=== PATIENT | male | born 1950 ===

== ENCOUNTER 2019-08-29 09:02 | Emergency (ER) | payer MEDICARE, OTHER ==
[~2019-08-29] VITALS: Ht 182 cm; Wt 68.0 kg
--- NOTE | 2019-08-29 09:31 | ED GI ---
General Stated Complaint: FLUID BUILD UP IN ABD Source of Information: Patient, Family (daughter, Alivia) Exam Limitations: No Limitations History of Present Illness Date Seen by Provider: Aug 29, 2019 Time Seen by Provider: 09:15 Initial Comments The patient resents to ER by private conveyance with chief complaint that he is traveling from his home in [place], [place] and has some increased abdominal discomfort and swelling. He has a history of abdominal ascites. 2004 he had a choledocholithiasis causing pancreatitis and portal vein thrombosis which has resulted in end-stage liver failure. He is not a transplant candidate however he has looked several different hospitals. For the past 15 years he just been having ascitic fluid drained as necessary. His last paracentesis was 2 weeks ago. He's had no shortness of breath chest pain fevers chills cough. He had an abdominal surgery to have his gallbladder and stone removed laparoscopically in 2004 and he has had a ventral hernia repair but no other abdominal surgeries. He's having abdominal discomfort but no severe pain. He does not take any medications routinely. He still follows with GI in [place], [place]. Allergies and Home Medications Patient Home Medication List Home Medication List Reviewed: Yes Review of Systems Review of Systems Constitutional: No chills, No fever EENTM: No Blurred Vision, No Double Vision Respiratory: Denies Cough, Denies Shortness of Air Cardiovascular: Denies Chest Pain, Denies Lightheadedness Gastrointestinal: See HPI, Abdomen Distended; Denies Abdominal Pain, Denies Constipated, Denies Diarrhea, Denies Nausea Genitourinary: Denies Burning, Denies Discharge Musculoskeletal: No back pain, No gout All Other Systems Reviewed Negative Unless Noted: Yes Past Btbygbx-Dkttqj-Bhqtav Hx Patient Social History Alcohol Use: Denies Use Recreational Drug Use: No Smoking Status: Never a Smoker Physical Exam Vital Signs Capillary Refill : Height/Weight/BMI Height: '" Weight: lbs. oz. kg; BMI Method: General Appearance: WD/WN, no apparent distress HEENT: PERRL/EOMI, pharynx normal Respiratory: lungs clear, normal breath sounds, no respiratory distress, no accessory muscle use Cardiovascular: normal peripheral pulses, regular rate, rhythm Peripheral Pulses: 2+ Dorsalis Pedis (R), 2+ Left Dors-Pedis (L) Gastrointestinal: normal bowel sounds, non tender, no organomegaly, distended Neurologic/Psychiatric: alert, normal mood/affect, oriented x 3 Skin: normal color, warm/dry Progress/Results/Core Measures Results/Orders My Orders Orders - EDMOND VANG Us Abdomen Complete [id number] (08/29/19 09:22) Ed Iv/Invasive Line Start (08/29/19 09:22) Cbc With Automated Diff (08/29/19 09:22) Comprehensive Metabolic Panel (08/29/19 09:22) Progress Progress Note : Time: 09:35 Progress Note Due to installer technician unavailability we are unable to get an ultrasound this morning. The patient's not a acute distress and says he'll be around tomorrow. We discussed the case with Dr. Valverde and he would like to schedule the patient in the morning tomorrow for outpatient ultrasound and paracentesis at the surgery center. The patient's in agreement with this plan. The patient has refused to do any blood work which is acceptable at this point. Departure Impression Primary Impression: Ascites Qualified Codes: R18.8 - Other ascites Disposition: 01 HOME, SELF-CARE Condition: Stable Departure-Patient Inst. Decision time for Depature: 09:38 Referrals: NO,LOCAL PHYSICIAN (PCP) Primary Care Physician ZURI VALVERDE MD Patient Instructions: Fluid in the Belly (Ascites) Add. Discharge Instructions: Tomorrow morning plan to arrive at the outpatient surgery center at least half a n hour prior to your 9:00 appointment for ultrasound and subsequent paracentesis. Dr. Valverde, general surgery will be performing the procedure. EDMOND VANG Aug 29, 2019 09:31
--- NOTE | 2019-08-29 09:35 | NUR ---
Pt refusing to have blood drawn or have an IV placed.
[2019-08-29 09:44] VITALS: BP 97/66
--- OUTSIDE RECORDS SUMMARY | 2019-08-31 17:20 | XMS REPORT | Continuity of Care Document ---
Author Organization Unknown Address Unknown Phone Unavailable Allergies Active Description Code Type Severity Reaction Onset Reported/Identified Relationship to Patient Clinical Status Yes NSAIDS (Non-Steroidal Anti-Inflamma [id number] Drug Allergy Unknown N/A 08/29/2019 Medications There is no data. Problems There is no data. Procedures There is no data. Results There is no data. Encounters ACCT No. Visit Date/Time Discharge Status Pt. Type Provider Facility Loc./Unit Complaint [id number] 08/30/2019 09:11:00 020 13:44:00 DIS Outpatient EDMOND VANG MD [facility] RAD ASCITES FOR PARACENTESI S [id number] 08/29/2019 09:03:00 09:44:00 DIS Emergency EDMOND VANG MD [facility] ER FLUID BUILD UP IN ABD
== END 2019-08-29 09:44 | disposition home or self-care (01) ==
LOC: ER 09:03
DX: R18.8 Other ascites (principal)
CPT/HCPCS: 99282

== ENCOUNTER 2019-08-30 09:11 | Outpatient (CLI) | payer MEDICARE ==
[~2019-08-30] VITALS: Ht 175.3 cm; Wt 68.0 kg
[2019-08-30 10:15] VITALS: BP 104/72
--- NOTE | 2019-08-30 13:45 | NUR ---
DR. VALVERDE HERE AT 1115 FOR PARACENTESIS: PROCEDURE TIME STARTED AT 1128, LIDOCAINE AT 1128, INCISION MADE AT 1129. STOP TIME IS 1324. AMOUNT DRAINED IS 6050 ML'S. TAKEN TO LAB PT STATES HE FEELS BETTER AT THIS TIME.
--- NOTE | 2019-08-30 16:05 | CONSULTATION REPORT ---
DATE OF SERVICE: 08/30/2019 INDICATIONS: The patient is a 69-year-old male who is visiting from [place], [place]. He has a history of portal vein thrombosis secondary to what sounds to be a gallstone pancreatitis in 2004. He then underwent a laparoscopic cholecystectomy as well as the ERCP; however, the pancreatitis did cause a significant amount of inflammation and thus the thrombosis. He has been evaluated by hepatology and adequate workup had been done. He was treated medically and also evaluated for liver transplantation; however, due to medical comorbidities, it was decided to proceed with more conservative approach. He reports that he has had issues with ascites more on an infrequent basis. However, in the past 15 months, this has become much more frequent. He does follow a strict low sodium low water diet. He has had reaccumulation of ascites with positive fluid shift wave. Ultrasound confirmed the ascites and location of the largest area of accumulation in the left lower abdominal quadrant. PAST MEDICAL HISTORY: Portal vein thrombosis, portal hypertension, esophageal varices, history of gallstone pancreatitis. PAST SURGERIES: Laparoscopic cholecystectomy, incisional hernia repair with mesh, bilateral inguinal hernia repair, umbilical hernia repair. ALLERGIES: No known drug allergies. MEDICATIONS: Nexium daily. SOCIAL HISTORY: Negative smoke, negative alcohol. FAMILY HISTORY: Noncontributory. VITAL SIGNS: Temperature 36.6, blood pressure 104/72, pulse 70, respirations 16, pulse ox 98% on room air. REVIEW OF SYSTEMS: Well-nourished male in no acute distress. He is not experiencing any shortness of breath or difficulty breathing. No chest pain, palpitations, diaphoresis. No nausea, vomiting. No diarrhea, constipation. No fever, chills, no recent inadvertent weight loss. All other review of systems negative. PHYSICAL EXAMINATION: CHEST: Clear. Good breath sounds bilaterally. HEART: Regular, no murmurs. EXTREMITIES: No lower extremity edema, negative Homans sign. HEENT: No scleral icterus or cervical lymphadenopathy. ABDOMEN: Soft, distended with a positive fluid shift wave. No abdominal pain. SKIN: Warm, dry. ASSESSMENT AND PLAN: A 69-year-old male with symptomatic ascites secondary to portal vein thrombosis and sinistral hypertension and resultant esophageal varices, caput medusae and ascites. He has reaccumulated ascites and has become symptomatic and we will proceed with therapeutic paracentesis. Job ID: [id number] DocumentID: [id number] Dictated Date: 08/30/2019 11:48:08 Magazine Worker Date: 08/30/2019 16:04:35 Dictated By: ZURI VALVERDE MD
--- NOTE | 2019-08-30 16:22 | OPERATIVE REPORT ---
DATE OF SERVICE: 08/30/2019 PREOPERATIVE DIAGNOSIS: Symptomatic ascites secondary to portal vein thrombosis. POSTOPERATIVE DIAGNOSIS: Symptomatic ascites secondary to portal vein thrombosis. PROCEDURE: Paracentesis. SURGEON: Zuri Valverde MD. ANESTHESIA: Local. ESTIMATED BLOOD LOSS: Minimal. FINDINGS: Straw yellow transudative fluid. DISPOSITION: The patient tolerated the procedure well. INDICATIONS: The patient is a 69-year-old male with a history of portal vein thrombosis secondary to gallstone pancreatitis in 2004. Since that time, he has been managed medically; however, in the past year and a half, he has had increasing episodes of symptomatic ascites. He has also undergone multiple EGDs as well as esophageal variceal banding. He is visiting family in this region; however, resides in [place], [place]. He has had reaccumulation of fluid with a positive fluid shift wave consistent with recurrent ascites. DESCRIPTION OF PROCEDURE: The patient underwent an ultrasound and marked in the left lower abdominal quadrant before the procedure. The abdomen was then prepped and draped in standard surgical fashion. A 1% lidocaine was then used to anesthetize the skin, subcutaneous tissue, muscle layers as well as the peritoneal lining. A vertical skin incision was made using 11 blade and the trocar and catheter were then placed withdrawing of straw yellow transudative fluid. The catheter was then advanced over the trocar without any resistance. Catheter was then connected to tubing and gravity drainage bag. The catheter was then covered with sterile gauze followed by Op-Site. The patient tolerated the procedure well. We will draw off as much fluid as possible and once this has decreased and he is asymptomatic, remove the catheter and apply Dermabond. We will also recommend continuation of medical management with a low sodium low water intake. It should be less than 1.5 grams of sodium daily as well as less than 1.5 liters of total of liquids daily. Job ID: [id number] DocumentID: [id number] Dictated Date: 08/30/2019 11:51:26 Accounting Intern Date: 08/30/2019 16:22:18 Dictated By: ZURI VALVERDE MD
== END 2019-08-30 13:44 | disposition home or self-care (01) ==
LOC: RAD 09:11
PROVIDERS: ATTEND Emergency Medicine
DX: R18.8 Other ascites (principal)
CPT/HCPCS: 49082; 49083

== ENCOUNTER 2019-09-19 09:21 | Emergency (ER) | payer MEDICARE ==
[~2019-09-19] VITALS: Ht 182 cm; Wt 58.0 kg
[2019-09-19] MEDS ORDERED: LACT1CAP74 PO (09:48)
[2019-09-19] MEDS ORDERED: ESOM20CA PO (09:48)
[2019-09-19] MEDS ORDERED: SIME125C PO (09:48)
--- OUTSIDE RECORDS SUMMARY | 2019-09-19 09:52 | XMS REPORT | Continuity of Care Document ---
Author Organization Unknown Address Unknown Phone Unavailable Allergies Active Description Code Type Severity Reaction Onset Reported/Identified Relationship to Patient Clinical Status Yes NSAIDS (Non-Steroidal Anti-Inflamma [id number] Drug Allergy Unknown N/A 08/29/2019 Medications There is no data. Problems Date Dx Coded Attending Type Code Diagnosis Diagnosed By 09/06/2019 CIERA SANCHEZ, EDMOND Edwards Ot R18. 8 OTHER ASCITES Procedures There is no data. Results There is no data. Encounters ACCT No. Visit Date/Time Discharge Status Pt. Type Provider Facility Loc./Unit Complaint [id number] 08/30/2019 09:11:00 020 13:44:00 DIS Outpatient EDMOND VANG MD [facility] RAD ASCITES FOR PARACENTESI S [id number] 08/29/2019 09:03:00 020 09:44:00 DIS Outpatient EDMOND VANG MD [facility] ER FLUID BUILD UP IN ABD
--- NOTE | 2019-09-19 12:06 | ED GI ---
General Chief Complaint: Abdominal/GI Problems Stated Complaint: FLUID ON STOMACH Nursing Triage Note: PT PRESENTS TO ED WITH COMPLAINTS OF ABDOMINAL SWELLING/FLUID THAT HE NEDS DRAINED,. Sepsis Screen: No Definite Risk History of Present Illness Date Seen by Provider: Sep 19, 2019 Time Seen by Provider: 11:30 Initial Comments 69-year-old male presents for reaccumulation of abdominal ascites. He has history of portal vein thrombosis with resultant end-stage liver failure had his last paracentesis done at this facility by Dr. VALVERDE on 08/30/19. He has been following her sodium and fluid restrictions. He denies any significant abdominal pain other than the fluid. Timing/Duration: 1-2 Days Severity/Quality: Moderate Location: Generalized Abdomen Associated Symptoms: Denies Symptoms Allergies and Home Medications Allergies Coded Allergies: NSAIDS (Non-Steroidal Anti-Inflamma (Verified Adverse Reaction, Unknown, 08/29/19) bleeding Patient Home Medication List Home Medication List Reviewed: Yes Review of Systems Review of Systems Constitutional: no symptoms reported Gastrointestinal: See HPI, Abdomen Distended; Denies Diarrhea, Denies Nausea, Denies Poor Appetite, Denies Poor Fluid Intake All Other Systems Reviewed Negative Unless Noted: Yes Past Ajzycpx-Bakiwo-Uycoos Hx Past Med/Social Hx: Reviewed Nursing Past Med/Soc Hx Patient Social History Alcohol Use: Denies Use Recreational Drug Use: No Smoking Status: Never a Smoker 2nd Hand Smoke Exposure: No Recent Foreign Travel: No Contact w/Someone Who Travel: No Recent Infectious Disease Expo: No Recent Hopitalizations: No Physical Abuse: No Sexual Abuse: No Mistreated: No Fear: No Past Medical History Surgeries: Yes (hernia) Abdominal, Gallbladder Respiratory: No Cardiac: No Neurological: No Genitourinary: Yes Kidney Stones Gastrointestinal: Yes ("needs liver transplant" DVT of portal vein, ) Abdominal Hernia, Liver Disease/Jaundice Endocrine: No HEENT: No Cancer: No Integumentary: No Blood Disorders: No Physical Exam Vital Signs Vital Signs - First Documented 09/19/19 09:39 Temp 36.6 Pulse 73 Resp 16 B/P (MAP) 95/66 (76) Pulse Ox 100 Capillary Refill : Less Than 3 Seconds Height/Weight/BMI Height: '" Weight: lbs. oz. kg; 17.00 BMI Method: General Appearance: WD/WN, no apparent distress HEENT: PERRL/EOMI, normal ENT inspection; No scleral icterus (R), No scleral icterus (L) Neck: non-tender, full range of motion, supple, normal inspection Respiratory: chest non-tender, lungs clear, normal breath sounds Cardiovascular: normal peripheral pulses, regular rate, rhythm Gastrointestinal: normal bowel sounds, distended; No rebound, No tenderness, No mass Neurologic/Psychiatric: no motor/sensory deficits, alert, normal mood/affect, oriented x 3 Skin: normal color, warm/dry; No jaundice Progress/Results/Core Measures Results/Orders Vital Signs/I&O 09/19/19 09/19/19 09:39 12:25 Temp 36.6 Pulse 73 70 Resp 16 20 B/P (MAP) 95/66 (76) 99/72 Pulse Ox 100 98 Blood Pressure Mean: 76 Diagnostic Imaging Diagonstic Imaging: Ultrasound Plain Films/CT/US/NM/MRI: abdomen Comments NAME: STEPH RODRIGUEZ [facility] REC#: [id number] PT STATUS: REG ER : 1950 PHYSICIAN: RUFINA KABA MD ADMIT DATE: 09/19/19/ER Draft Date of Exam:09/19/19 US PARACENTESIS INITIAL [id number] INDICATION: Ascites. FINDINGS: Right and left upper lower quadrants were evaluated for ascites. There is a large amount of ascites in the right lower quadrant. Moderate ascites left lower quadrant is seen. Left upper quadrant is unremarkable. There is dhhq-xb-rccjedzl ascites in the right upper quadrant. IMPRESSION: Moderate ascites, as described. Marking was provided at the right lower quadrant for paracentesis. Dictated on workstation # [id number] Dict: 09/19/19 1204 Trans: 09/19/19 1206 CVB [id number] Interpreted by: NEERU SMITH MD Electronically signed by: Departure Impression Primary Impression: Ascites Qualified Codes: R18.8 - Other ascites Disposition: HOME, SELF-CARE Condition: Improved Departure-Patient Inst. Decision time for Depature: 12:00 Referrals: NO,LOCAL PHYSICIAN (PCP) Primary Care Physician ZURI VALVERDE MD Patient Instructions: Fluid in the Belly (Ascites) (DC) Add. Discharge Instructions: Proceed to Outpatient surgery, you will have paracentesis by Dr. Kido later today. Follow his precautions on sodium and fluid restrictions. Call his office, if fluid re-accumulates. Return to the emergency department for new, urgent health care problems. All discharge instructions reviewed with patient and/or family. Voiced understanding. Copy Copies To 1: ZURI VALVERDE MD, AMY ARNP Sep 19, 2019 12:05
--- NOTE | 2019-09-19 12:07 | Diagnostic Imaging Report ---
INDICATION: Ascites. FINDINGS: Right and left upper lower quadrants were evaluated for ascites. There is a large amount of ascites in the right lower quadrant. Moderate ascites left lower quadrant is seen. Left upper quadrant is unremarkable. There is iwwx-is-quvoxmps ascites in the right upper quadrant. IMPRESSION: Moderate ascites, as described. Marking was provided at the right lower quadrant for paracentesis. Dictated by: Dictated on workstation # [id number]
[2019-09-19 12:25] VITALS: BP 99/72
== END 2019-09-19 12:25 | disposition home or self-care (01) ==
LOC: EDUNIT# 09:21 → ER 09:27
DX: R18.8 Other ascites (principal); K72.90 Hepatic failure, unspecified without coma; Z86.718 Personal history of other venous thrombosis and embolism
CPT/HCPCS: A7048; 49083

== ENCOUNTER 2019-09-19 12:16 | Outpatient (CLI) | payer MEDICARE ==
[~2019-09-19 12:16] MED LIST: ESOM20CA PO; LACT1CAP74 PO; SIME125C PO
--- OUTSIDE RECORDS SUMMARY | 2019-09-19 13:06 | XMS REPORT | Continuity of Care Document ---
Author Organization Unknown Address Unknown Phone Unavailable Allergies Active Description Code Type Severity Reaction Onset Reported/Identified Relationship to Patient Clinical Status Yes NSAIDS (Non-Steroidal Anti-Inflamma [id number] Drug Allergy Unknown N/A 08/29/2019 Medications There is no data. Problems Date Dx Coded Attending Type Code Diagnosis Diagnosed By 09/06/2019 CIERA SANCHEZ, EDMOND Edwards Ot R18. 8 OTHER ASCITES Procedures There is no data. Results There is no data. Encounters ACCT No. Visit Date/Time Discharge Status Pt. Type Provider Facility Loc./Unit Complaint [id number] 08/30/2019 09:11:00 020 13:44:00 DIS Outpatient EDMOND VANG MD [facility] RAD ASCITES FOR PARACENTESI S [id number] 08/29/2019 09:03:00 020 09:44:00 DIS Outpatient EDMOND VANG MD [facility] ER FLUID BUILD UP IN ABD
[2019-09-19 13:43] VITALS: BP 116/79
--- NOTE | 2019-09-19 15:30 | NUR ---
ASSUMED CARE OF PT FROM Virgilio KING RN. CLOUDY, YELLOW FLUID DRAINING FROM RIGHT LOWER QUAD PARACENTESIS SITE TO DEPENDANT DRAINAGE BRUNNER BAG SECURED TO LOWER BED RAIL. MINIMAL AMOUNT OF SEROSANGUINOUS DRAINAGE ON GAUZE AT PARACENTESIS CATHETER INSERTION SITE. OPSITE IN PLACE OVER GAUZE. PT ALERT, STATES SITE IS TENDER.
--- NOTE | 2019-09-19 15:33 | HISTORY AND PHYSICAL ---
DATE OF SERVICE: HISTORY OF PRESENT ILLNESS: The patient is a 69-year-old male who was initially seen on 08/30/2019. He was visiting from [place], [place], however, has family from this region and was visiting. He has a history of portal vein thrombosis secondary to gallstone pancreatitis in 2004. He underwent a laparoscopic cholecystectomy as well as the ERCP; however, the pancreatitis did cause a significant amount of inflammation and thus the thrombosis. He has been evaluated by hepatology and has had adequate workup done in the past. He has been medically treated and also evaluated for liver transplantation; however, due to medical comorbidities, it was decided to proceed with a more conservative approach. He does have issues with recurrent ascites. In the last 15 months, this has become more frequent. He does follow a strict low sodium, low water diet. He did return to the Emergency Department with recurrent abdominal distention with positive fluid shift wave consistent with recurrent ascites. PAST MEDICAL HISTORY: Portal vein thrombosis, portal hypertension, esophageal varices, history of gallstone pancreatitis. PAST SURGICAL HISTORY: Laparoscopic cholecystectomy, incisional hernia repair with mesh, bilateral inguinal hernia repair, umbilical hernia repair. ALLERGIES: No known drug allergies. MEDICATIONS: Nexium daily. SOCIAL HISTORY: Negative smoke, negative alcohol. FAMILY HISTORY: Noncontributory. VITAL SIGNS: Temperature 36.1, blood pressure 116/71, pulse 71, respirations 18, pulse ox 99% on room air. REVIEW OF SYSTEMS: Well-nourished male, in no acute distress. He is not experiencing any shortness of breath or difficulty breathing. No chest pain, palpitations, diaphoresis. No nausea, vomiting, diarrhea, or constipation. No fever, chills, no recent inadvertent weight loss. All other review of systems negative. PHYSICAL EXAMINATION: CHEST: Clear. Good breath sounds bilaterally. HEART: Regular, no murmurs. EXTREMITIES: No lower extremity edema, negative Homans sign. HEENT: No scleral icterus or cervical lymphadenopathy. ABDOMEN: Distended, soft, positive fluid shift wave. No peritoneal signs. SKIN: Warm and dry. ASSESSMENT AND PLAN: A 69-year-old male with recurrent symptomatic ascites secondary to portal hypertension from previous portal vein thrombosis from gallstone pancreatitis. Once again we have developed recurrent ascites and symptomatic and we will proceed with a therapeutic paracentesis. Job ID: [id number] DocumentID: [id number] Dictated Date: 09/19/2019 15:11:28 Mop Man Date: 09/19/2019 15:33:09 Dictated By: ZURI VALVERDE MD
--- NOTE | 2019-09-19 17:15 | NUR ---
4,250 CC PARACENTESIS FLUID OBTAINED. FLOW TO BAG HAS STOPPED. PARACENTESIS CATHETER REMOVED WITH STERILE TECHNIQUE. SKIN AFFIX APPLIED TO SITE. TEMP, 36.4, PULSE 65, RESPIRATIONS 18, B/P 110/69. ALERT, DENIES COMPLAINTS OTHER THAN SITE TENDERNESS.
--- NOTE | 2019-09-19 17:25 | NUR ---
DISMISSED PER WC THROUGH FRONT EXIT TO PRIVATE VEHICLE WITH STAFF X1.
--- NOTE | 2019-09-19 19:37 | OPERATIVE REPORT ---
DATE OF SERVICE: 09/19/2019 PREOPROCEDURE DIAGNOSIS: Recurrent symptomatic ascites, secondary to portal vein thrombosis from gallstone pancreatitis. POSTPROCEDURE DIAGNOSIS: Recurrent symptomatic ascites, secondary to portal vein thrombosis from gallstone pancreatitis. PROCEDURE: Paracentesis. SURGEON: Zuri Valverde MD ANESTHESIA: Local. ESTIMATED BLOOD LOSS: Minimal. FINDINGS: Straw yellow transudative fluid. DISPOSITION: The patient tolerated the procedure well. INDICATIONS: The patient is a 69-year-old male, known to us. He initially grew up. However, he has lived in different locations and currently resides in [place], [place] and was visiting family; however, had recurrent symptomatic ascites. He has a history of gallstone pancreatitis causing portal vein thrombosis and recurrent ascites. He has developed recurrent abdominal distention with positive fluid shift wave consistent with recurrent ascites. DESCRIPTION OF PROCEDURE: The abdomen was prepped and draped in standard surgical fashion. Before this, an ultrasound was performed and the abdomen was marked in the right lower abdominal quadrant. A 1% lidocaine was used to anesthetize the skin, subcutaneous tissue, muscle layers as well as the peritoneal lining. A vertical skin incision was made using a 15 blade. The catheter and trocar were then introduced, withdrawing of straw yellow transudative fluid. The catheter was advanced over the trocar without any resistance. The catheter was then connected to tubing and gravity drainage bag. The catheter was then covered with gauze followed by sterile gauze followed by Op-Site. The patient tolerated the procedure well. We will drain as much fluid as possible and once asymptomatic with significant decompression of the abdomen, the catheter was removed and we will discharge him home. We will have him follow up on a p.r.n. basis. Job ID: [id number] DocumentID: [id number] Dictated Date: 09/19/2019 15:15:15 Creamery Worker Date: 09/19/2019 19:37:20 Dictated By: ZURI VALVERDE MD
== END 2019-09-19 17:25 | disposition home or self-care (01) ==
LOC: SDC 12:16 → ER 12:16 → EDSTATUS 12:24 → ER 17:25
PROVIDERS: ATTEND Surgery
DX: R18.8 Other ascites (principal); K76.6 Portal hypertension; Z90.49 Acquired absence of other specified parts of digestive tract; Z98.890 Other specified postprocedural states
CPT/HCPCS: 49082

== ENCOUNTER 2019-10-06 09:43 | Outpatient (CLI) | payer MEDICARE ==
[~2019-10-06] VITALS: Ht 182.9 cm; Wt 58.0 kg
--- NOTE | 2019-10-06 11:14 | Diagnostic Imaging Report ---
INDICATION: Ascites. Sonographic interrogation of the right and left upper and lower quadrants was performed. Moderate free fluid is identified in the lower quadrants bilaterally. The largest pocket in the right lower quadrant was marked for Dr. Birmignham for the purpose of paracentesis. IMPRESSION: Ultrasound marking for paracentesis, as described. Dictated by: Dictated on workstation # [id number]
[2019-10-06 12:05] VITALS: BP 108/74
--- NOTE | 2019-10-06 12:18 | OPERATIVE REPORT ---
DATE OF SERVICE: 10/06/2019 PREOPERATIVE DIAGNOSIS: Recurrent symptomatic ascites. POSTPROCEDURE DIAGNOSIS: Recurrent symptomatic ascites. PROCEDURE: Paracentesis. SURGEON: Zuri Valverde MD. ANESTHESIA: Local. ESTIMATED BLOOD LOSS: Minimal. FINDINGS: Approximately 3500 mL of straw yellow transudative fluid. DISPOSITION: The patient tolerated the procedure well. INDICATION FOR PROCEDURE: The patient is a 69-year-old male known to us. He has a history of recurrent symptomatic ascites secondary to portal vein thrombosis from an episode of gallstone pancreatitis. He was living in [place], [place]; however, has moved to this area to be closer to family. He is otherwise doing well; however, has developed recurrent symptomatic ascites. DESCRIPTION OF PROCEDURE: Abdomen was prepped and draped in a standard surgical fashion. Before this, the abdomen was marked in the right lower abdominal quadrant by ultrasound. A 1% lidocaine was then used to anesthetize the skin, subcutaneous tissue, muscle layers as well as the peritoneal lining. A vertical skin incision was then made using 11 blade and the catheter and trocar were then introduced withdrawing of straw yellow transudative fluid. The catheter was then advanced over the trocar without any resistance. The catheter was then continued to vacuum container where approximately 3.5 liters of straw yellow transudative fluid was evacuated. The catheter was then removed, dried and covered with Dermabond. The patient tolerated the procedure well. We will have him follow up when he does have a reoccurrence of symptomatic ascites. Job ID: [id number] DocumentID: [id number] Dictated Date: 10/06/2019 11:31:10 Executive Director Of Nursing Date: 10/06/2019 12:17:48 Dictated By: ZURI VALVERDE MD
== END 2019-10-06 12:05 | disposition home or self-care (01) ==
LOC: RAD 09:43
PROVIDERS: ATTEND Surgery
DX: R18.8 Other ascites (principal); I81 Portal vein thrombosis
CPT/HCPCS: 49082; 76942

== ENCOUNTER 2019-10-11 09:39 | Inpatient (IN) | payer MEDICARE ==
[~2019-10-11] VITALS: Ht 182.9 cm; Wt 62.4 kg
--- NOTE | 2019-10-11 10:09 | ED GI ---
General Chief Complaint: Abdominal/GI Problems Stated Complaint: BLOOD IN STOOL;DIZZINESS Source of Information: Patient Exam Limitations: No Limitations History of Present Illness Date Seen by Provider: Oct 11, 2019 Time Seen by Provider: 09:57 Initial Comments Here with report of feeling weak and dizzy and having red blood in stool. Does have history of portal vein thrombosis and subsequent liver dysfunction. He is from [place], [place] and has been here for several weeks. He is staying at a hotel to avoid COVID-19. He has had several paracenteses with Dr. Birmingham. Denies fever or chills. Denies any significant discomfort or breathing problems currently. Timing/Duration: 2-3 Days, Getting Worse Severity/Quality: Mild (dizziness and small amount of blood in stool) Location: Other (generalized abdominal distention) Activities at Onset: None Modifying Factors: Worsens With Movement; Improves With Resting Associated Symptoms: No Back Pain, No Chest Pain, No Fever/Chills; Fatigue; No Shortness of Air; Weakness Allergies and Home Medications Allergies Coded Allergies: NSAIDS (Non-Steroidal Anti-Inflamma (Verified Adverse Reaction, Unknown, 08/29/19) bleeding Patient Home Medication List Home Medication List Reviewed: Yes Review of Systems Review of Systems Constitutional: see HPI EENTM: No Symptoms Reported Respiratory: No Symptoms Reported Cardiovascular: Denies Chest Pain; Lightheadedness Gastrointestinal: Nausea, Rectal Bleeding; Denies Vomiting Genitourinary: No Symptoms Reported Musculoskeletal: no symptoms reported Skin: no symptoms reported Psychiatric/Neurological: See HPI All Other Systems Reviewed Negative Unless Noted: Yes Past Vcyhsql-Goatvm-Twdfvm Hx Past Med/Social Hx: Reviewed Nursing Past Med/Soc Hx Patient Social History Alcohol Use: Denies Use Recreational Drug Use: No Smoking Status: Never a Smoker 2nd Hand Smoke Exposure: No Recent Foreign Travel: No Contact w/Someone Who Travel: No Recent Hopitalizations: No Past Medical History Surgeries: Yes (hernia) Abdominal, Gallbladder Respiratory: No Cardiac: No Neurological: No Genitourinary: Yes Kidney Stones Gastrointestinal: Yes ("needs liver transplant" DVT of portal vein, ) Abdominal Hernia, Liver Disease/Jaundice Endocrine: No HEENT: No Cancer: No Integumentary: No Blood Disorders: No Family Medical History Reviewed Nursing Family Hx Physical Exam Vital Signs Vital Signs - First Documented 10/11/19 09:40 Temp 36.4 Pulse 91 Resp 18 B/P (MAP) 133/79 (97) Pulse Ox 100 Capillary Refill : Height/Weight/BMI Height: '" Weight: lbs. oz. kg; 17.00 BMI Method: General Appearance: WD/WN, no apparent distress HEENT: PERRL/EOMI, TMs normal, pharynx normal Neck: full range of motion, supple Respiratory: lungs clear, normal breath sounds Cardiovascular: regular rate, rhythm, no murmur Peripheral Pulses: 2+ Dorsalis Pedis (R), 2+ Left Dors-Pedis (L), 2+ Radial Pulses (R), 2+ Radial Pulses (L) Gastrointestinal: soft, distended; No tenderness Extremities: non-tender, normal inspection Back: normal inspection, no CVA tenderness, no vertebral tenderness Neurologic/Psychiatric: alert, oriented x 3 Skin: normal color, warm/dry Progress/Results/Core Measures Results/Orders Lab Results Laboratory Tests Test 10/11/19 09:55 10/11/19 10:57 Range/Units White Blood Count 7.0 4.3-11.0 10^3/uL Red Blood Count 3.52 L 4.35-5.85 10^6/uL Hemoglobin 8.3 L 13.3-17.7 G/DL Hematocrit 27 L 40-54 % Mean Corpuscular Volume 76 L 80-99 FL Mean Corpuscular Hemoglobin 24 L 25-34 PG Mean Corpuscular Hemoglobin Concent 31 L 32-36 G/DL Red Cell Distribution Width 21.0 H 10.0-14.5 % Platelet Count 206 130-400 10^3/uL Mean Platelet Volume 9.7 7.4-10.4 FL Neutrophils (%) (Auto) 90 H 42-75 % Lymphocytes (%) (Auto) 5 L 12-44 % Monocytes (%) (Auto) 5 0-12 % Eosinophils (%) (Auto) 0 0-10 % Basophils (%) (Auto) 0 0-10 % Neutrophils # (Auto) 6.3 1.8-7.8 X 10^3 Lymphocytes # (Auto) 0.3 L 1.0-4.0 X 10^3 Monocytes # (Auto) 0.4 0.0-1.0 X 10^3 Eosinophils # (Auto) 0.0 0.0-0.3 10^3/uL Basophils # (Auto) 0.0 0.0-0.1 10^3/uL Neutrophils % (Manual) 89 % Lymphocytes % (Manual) 7 % Monocytes % (Manual) 3 % Eosinophils % (Manual) 0 % Basophils % (Manual) 0 % Band Neutrophils 1 % Anisocytosis SLIGHT Microcytosis SLIGHT Elliptocytes SLIGHT Prothrombin Time 14.8 H 12.2-14.7 SEC INR Comment 1.1 0.8-1.4 Activated Partial Thromboplast Time 30 24-35 SEC Sodium Level 131 L 135-145 MMOL/L Potassium Level 5.5 H 3.6-5.0 MMOL/L Chloride Level 103 98-107 MMOL/L Carbon Dioxide Level 17 L 21-32 MMOL/L Anion Gap 11 5-14 MMOL/L Blood Urea Nitrogen 59 H 7-18 MG/DL Creatinine 1.09 0.60-1.30 MG/DL Estimat Glomerular Filtration Rate > 60 BUN/Creatinine Ratio 54 Glucose Level 166 H 70-105 MG/DL Calcium Level 9.0 8.5-10.1 MG/DL Corrected Calcium 9.6 8.5-10.1 MG/DL Magnesium Level 2.0 1.6-2.4 MG/DL Total Bilirubin 0.5 0.1-1.0 MG/DL Aspartate Amino Transf (AST/SGOT) 19 5-34 U/L Alanine Aminotransferase (ALT/SGPT) 22 0-55 U/L Alkaline Phosphatase 66 40-136 U/L C-Reactive Protein High Sensitivity 1.18 H 0.00-0.50 MG/DL Total Protein 7.5 6.4-8.2 GM/DL Albumin 3.3 3.2-4.5 GM/DL My Orders Orders - RUFINA KABA MD Cbc With Automated Diff (10/11/19 10:03) Comprehensive Metabolic Panel (10/11/19 10:03) Hs C Reactive Protein (10/11/19 10:03) Magnesium (10/11/19 10:03) Protime With Inr (10/11/19 10:03) Partial Thromboplastin Time (10/11/19 10:03) Type And Screen (10/11/19 10:03) Ed Iv/Invasive Line Start (10/11/19 10:03) Manual Differential (10/11/19 09:55) Ekg Tracing (10/11/19 10:29) Ua Culture If Indicated (10/11/19 11:07) Pantoprazole Injection (Protonix Injecti (10/11/19 11:15) Medications Given in ED Current Medications Medications Dose Ordered Sig/Jarred Route Start Time Stop Time Status Last Admin Dose Admin Pantoprazole 80 mg ONCE ONCE IV 10/11/19 11:15 10/11/19 11:20 DC 10/11/19 11:23 80 MG Vital Signs/I&O 10/11/19 09:40 Temp 36.4 Pulse 91 Resp 18 B/P (MAP) 133/79 (97) Pulse Ox 100 Progress Progress Note : Progress Note Seen and evaluated. IV, labs, type and screen ordered. Monitor patient. 1105: Hemoccult done and is positive and black tarry stool noted. Patient reports continued dizziness. Hemoglobin 8.3. Potassium elevated at 5.5 but he does eat a lot of potassium rich foods including potassium salt alternative. I did discuss the case with Dr. Calderon and she accepts patient for admission, observation status. 06/22/07: I have discussed the case with Dr. Birmingham, patient's primary surgeon. We will initiate Protonix 80 mg IV and drip at 8 mg per hour and he will see the patient and schedule for likely upper endoscopy. This was discussed with the patient who is in agreement. He is appreciative of the admission and he was very worried about going back to the hotel in his current condition. Admit, observation status. Patient agrees with plan. Initial ECG Impression Date: Oct 11, 2019 Initial ECG Impression Time: 10:41 Initial ECG Rate: 82 Initial ECG Rhythm: Normal Sinus Initial ECG Comparisson: No Previous ECG Available Comment Sinus rhythm with normal axis. No evidence of ST elevation IN. Nonspecific intraventricular conduction delay noted. Q waves noted in the inferior leads. No previous available for comparison. Interpreted by me. Departure Impression Primary Impression: Upper GI bleed Additional Impressions: Dizziness Portal vein thrombosis Disposition: ADMITTED INPATIENT Condition: Stable Admissions Decision to Admit Reason: Admit from ER (General) Decision to Admit/Date: Oct 11, 2019 Time/Decision to Admit Time: 11:05 Departure-Patient Inst. Referrals: NO,LOCAL PHYSICIAN (PCP/Family) Primary Care Physician RUFINA KABA MD Oct 11, 2019 10:09
[2019-10-11 10:13] LABS: BASOPHILS % (AUTO) 0 % (0-10); EOSINOPHILS % (AUTO) 0 % (0-10); HEMATOCRIT 27 % (40-54); HEMOGLOBIN 8.3 G/DL (13.3-17.7); LYMPHOCYTES # (AUTO) 0.3 X 10^3 (1.0-4.0); LYMPHOCYTES % (AUTO) 5 % (12-44); MEAN CORPUSCULAR HEMOGLOBIN 24 PG (25-34); MEAN CORPUSCULAR HGB CONC 31 G/DL (32-36); MEAN CORPUSCULAR VOLUME 76 FL (80-99); MEAN PLATELET VOLUME 9.7 FL (7.4-10.4); MONOCYTES # (AUTO) 0.4 X 10^3 (0.0-1.0); MONOCYTES % (AUTO) 5 % (0-12); NEUTROPHILS # (AUTO) 6.3 X 10^3 (1.8-7.8); NEUTROPHILS % (AUTO) 90 % (42-75); PLATELET COUNT 206 10^3/uL (130-400)
[2019-10-11] MEDS ORDERED: HYDR-83 (10:13)
[2019-10-11 10:20] LABS: ALBUMIN 3.3 GM/DL (3.2-4.5)
[2019-10-11 10:21] LABS: CHLORIDE 103 MMOL/L (98-107); POTASSIUM 5.5 MMOL/L (3.6-5.0); SODIUM 131 MMOL/L (135-145)
[2019-10-11 10:23] LABS: GLUCOSE 166 MG/DL (70-105); TOTAL PROTEIN 7.5 GM/DL (6.4-8.2)
[2019-10-11 10:24] LABS: CARBON DIOXIDE 17 MMOL/L (21-32)
[2019-10-11 10:25] LABS: BILIRUBIN,TOTAL 0.5 MG/DL (0.1-1.0); INR 1.1 (0.8-1.4); PROTHROMBIN TIME PATIENT 14.8 SEC (12.2-14.7)
[2019-10-11 10:26] LABS: ALKALINE PHOSPHATASE 66 U/L (40-136)
[2019-10-11 10:27] LABS: CREATININE SERUM 1.09 MG/DL (0.60-1.30); GFR ESTIMATED > 60
[2019-10-11 10:28] LABS: BUN/CREATININE RATIO 54
[2019-10-11 10:29] LABS: ALANINE AMINOTRANSFERASE 22 U/L (0-55)
[2019-10-11 10:37] LABS: ANISOCYTOSIS SLIGHT; BAND NEUTROPHILS 1 %; BASOPHILS % (MANUAL) 0 %; ELLIPT/OVALOCYTES SLIGHT; EOSINOPHILS % (MANUAL) 0 %; LYMPHOCYTES % (MANUAL) 7 %; MICROCYTOSIS SLIGHT; MONOCYTES % (MANUAL) 3 %; NEUTROPHILS % (MANUAL) 89 %
[2019-10-11] MEDS ORDERED: PANTOPRAZOLE 40 MG (PROTONIX) VIAL IV ONE (11:15)
[2019-10-11 11:24] LABS: BILIRUBIN,URINE NEGATIVE (NEGATIVE); CLARITY,URINE CLEAR; COLOR,URINE YELLOW; GLUCOSE, URINE (UA) NEGATIVE (NEGATIVE); KETONES,URINE NEGATIVE (NEGATIVE); LEUKOCYTE ESTERASE ,URINE NEGATIVE (NEGATIVE); NITRITE,URINE NEGATIVE (NEGATIVE); PROTEIN,URINE NEGATIVE (NEGATIVE)
[2019-10-11 11:34] LABS: BACTERIA,URINE TRACE /HPF; WBC,URINE RARE /HPF
[2019-10-11 11:40] VITALS: BP 118/68
--- NOTE | 2019-10-11 11:46 | NUR ---
STEPH RODRIGUEZ admitted to room 413-1, with an admitting diagnosis of GI bleed , on 10/11/19 from ER via wheel chair, accompanied by staff .STEPH RDORIGUEZ introduced to surroundings, call light, bed controls, phone, TV, temperature control, lights, meal times, smoking policy, visitor policy, side rail policy, bathrooms and showers. Patient Rights given to patient in the handbook. STEPH RODRIGUEZ verbalizes understanding that [facility] is not responsible for the loss or damage to any personal effects or valuables that are kept in the patients posession during their hospitalization. The following Patient Care Plans and discharge were discussed with the patient. STEPH RODRIGUEZ verbalizes understanding of Interdisciplinary Patient Education. Patient was informed about the Rapid Response Team and its purpose.
[2019-10-11] MEDS ORDERED: ONDANSETRON 4 MG/2 ML (SDV) Z0FRAN IV PRN (12:00)
[2019-10-11] MEDS ORDERED: CATHETER FLUSH 10 ML SYR IV PRN (12:00)
[2019-10-11] MEDS: PANTOPRAZOLE DRIP 200 MG/NS 100 ML IV SCH ×2 (13:01)
[2019-10-11] MEDS: CATHETER FLUSH 10 ML SYR IV SCH ×2 (13:02→21:57)
[2019-10-11] MEDS ORDERED: ACET-2267 PO ×2 (13:21)
[2019-10-11] MEDS ORDERED: L.AC1CAP6 PO ×2 (13:21)
[2019-10-11] MEDS ORDERED: ESOM20CA58 PO ×2 (13:21)
[2019-10-11 13:42] VITALS: BP 118/68
--- NOTE | 2019-10-11 13:49 | NUR ---
RD ASSESSMENT PMHx: portal vein thrombosis; liver dysfunction/jaundice PT INTERACTION: Pt was awake and pleasant during nutrition assessment, at request of RN. Pt states current appetite is good. Note no meals have been recorded at this time, per chart review. Pt states following a "no-salt" diet at home. Pt states he avoids salt in everything as to avoid having paracentesis procedures d/t fluid retention. Pt states no issues with chewing/swallowing food. Pt states no recent issues with nausea/vomiting/constipation/diarrhea, and that his last BM was 10/10. Note stool was described as "black tarry stool" per H&P. Note pt not currently on bowel regimen per chart review. Pt states wt fluctuates with fluid buildup and paracentesis. Note unable to determine recent wt hx, per chart review. Note abnormal lab values of K 5.5 (H); BUN 59 (H); glu 166 (H); Na 131 (L). Note low Na may be masking elevated Na levels due to abdominal fluid retention. Upon visual assessment, pt does not appear to be adequately nourished with signs of fluid accumulation in his abdomen. Note pt has BMI of 16.7, which given pt's age, is classified as Underweight. ABNORMAL NUTRITION-RELATED LAB VALUES LOW: Na 131 HIGH: BUN 59; K 5.5; glu 166 Est. kcal needs: 8589-9740 kcal | 30-35 kcal/kg Est. Pro needs: 68-80 g Pro | 1.2-1.4 g Pro/kg PES STATEMENT: Inadequate oral intake (NI-2.1) related to loss of appetite as evidenced by pt interview INTERVENTION: Continue with current diet order of Clear Liquid diet. Add Ensure Clear (vary) to meals TID, for increased kcal and protein intake. Provides 250 kcal and 8 g Pro per serving. Encouraged pt to eat when able. Will continue to follow and reassess as pt needs, intake, and status change. MONITOR/EVALUATE: PO Intake; Plan of Care; Hydration Status; Weight Status; Lab Values Bibiana Daly, MS, RD, LD
--- NOTE | 2019-10-11 14:09 | CONSULTATION REPORT ---
DATE OF SERVICE: ADMITTING PHYSICIAN: Dr. Calderon. HISTORY OF PRESENT ILLNESS: The patient is a 69-year-old male known to us. He recently moved from [place], [place] where he was working and also retired. This gentleman has a longstanding history of portal vein thrombosis, which encompasses the splenic vein, superior mesenteric vein as well as the portal vein due to complications with gallstone pancreatitis. He has never been a drinker. He has seen multiple rubber stamp die inspector and specialist in the past and the recommendation was to proceed with medical management due to the complexity and involvement of surgical bypass. He has temporarily moved to this region to be close to family members. Since being here, he has had recurrent episodes of recurrent symptomatic ascites. He is very strict with his diet and only makes his own food and eats his own food due to comply with a low sodium diet. He also does watch the amount of water intake he takes in daily as well. Despite this, his ascites has worsened. We have done approximately 3 or 4 paracentesis in the past few months. He presented with weakness this morning and was found to be slightly anemic with a hemoglobin in the 8 range. He also does most likely is experiencing some hypoproteinemia due to the protein extravasation into the peritoneal cavity and the third spacing, which has been extracted on a routine basis. Upon presentation to the Emergency Department, he also did have rectal examination and was found to have dark tarry stools. He reports that he has had previous esophageal varices and bandings done before in the past. He does not report any hematemesis, no coffee ground emesis. PAST MEDICAL HISTORY: Portal system thrombosis, history of esophageal varices and gastric varices. PAST SURGICAL HISTORY: Cholecystectomy, hernia repair. ALLERGIES: Nonsteroidal anti-inflammatories. MEDICATIONS: Nexium 20 mg daily, simethicone q.i.d., probiotic daily. SOCIAL HISTORY: Negative smoke, negative alcohol. FAMILY HISTORY: Noncontributory. VITAL SIGNS: Temperature 36.4, blood pressure 133/79, pulse 91, respirations 18, pulse ox 100% on room air. REVIEW OF SYSTEMS: Well-nourished male, currently in no acute distress. He is not experiencing any shortness of breath or difficulty breathing. No chest pain, palpitations, diaphoresis. No nausea, vomiting; however, has felt weak and lightheaded. A digital rectal examination was performed, which did reveal dark tarry stools. No red blood per rectum, no hematochezia. No fever, chills. He states that he does not recall any recent weight loss. All other review of systems negative. PHYSICAL EXAMINATION: CHEST: Clear. Good breath sounds bilaterally. HEART: Regular, no murmurs. EXTREMITIES: No lower extremity edema, negative Homans sign. HEENT: No scleral icterus. NECK: No cervical lymphadenopathy. ABDOMEN: Soft, slightly distended. No peritoneal signs. SKIN: Warm, dry. LABORATORY DATA: WBC 7.0, hemoglobin 8.3, hematocrit 27, platelets 206, BUN 59, creatinine 1.09. ASSESSMENT AND PLAN: A 69-year-old male with portal system thrombosis and the associated complications related to this due to an episode of severe gallstone pancreatitis. He has been getting recurrent symptomatic ascites and we have been doing paracentesis for this. He did present with weakness as well as dark tarry stools, which may indicate gastritis; however, still cannot rule out the possibility of any form of varices. He has also been losing a significant amount of protein during his paracentesis and may benefit from albumin infusion. We will also proceed with an EGD and biopsies as appropriate if he is amenable to this on this admission. Job ID: [id number] DocumentID: [id number] Dictated Date: 10/11/2019 13:28:49 Shoe Laster Date: 10/11/2019 14:08:36 Dictated By: ZURI VALVERDE MD [facility]
--- NOTE | 2019-10-11 14:29 | History & Physical-Hospitalist ---
History of Present Illness HPI/Chief Complaint Pt is a 69yoCM with a PMH of portal vein thrombosis with secondary portal hypertension and liver disease who presented to the ER with complaint of bloody stools. He states that normally lives in [place], [place] but was travelling to visit friends when travel restrictions were placed and he decided to stay here. I spoke with he and his daughter (internal medicine physician) who state that he has had recurrent episodes of ascites and need for paracentesis. He follows a very strict low sodium diet to manage his ascites. he reports he takes in about 500mg of sodium per day. He was previously on Lasix and Spirolactone to manage his ascites but has been unable to tolerate them due to dizziness and low blood pressure. Per his daughter he has had multiple episode of GI bleeding in the last year and a half. His most recent was in May of 2019 and he was found to have gastric ulcers and esophageal varices which she states were cauterized. Today he noted bloody stools and was found to have dark tarry stools in the ER with a positive FOBT. Source: patient, family Date Seen 10/11/19 Time Seen by a Provider: 14:25 Attending Physician Yohannes Calderon MD PCP No,Local Physician Referring Physician Date of Admission Oct 11, 2019 at 11:20 Home Medications & Allergies Home Medications Reviewed patient Home Medication Reconciliation performed by pharmacy medication reconciliations manufacturing test technician and/or nursing. Patients Allergies have been reviewed. Allergies Allergies Coded Allergies NSAIDS (Non-Steroidal Anti-Inflamma (Verified Adverse Reaction, Unknown, 08/29/19) bleeding Past Fgqmjav-Lokbnl-Oxbuug Hx Past Med/Social Hx: Reviewed Nursing Past Med/Soc Hx Patient Social History Employed/Student: employed Alcohol Use: Denies Use Recreational Drug Use: No Smoking Status: Never a Smoker 2nd Hand Smoke Exposure: No Physical Abuse Screen: No Sexual Abuse: No Recent Foreign Travel: No Contact w/other who traveled: No Recent Hopitalizations: No Recent Infectious Disease Expo: No Seasonal Allergies Seasonal Allergies: Yes Past Medical History Surgeries: Abdominal, Gallbladder Cardiac: Hypotension Genitourinary: Kidney Stones Gastrointestinal: Abdominal Hernia, Liver Disease/Jaundice History of Blood Disorders: No Family History Reviewed Nursing Family Hx No Pertinent Family Hx Review of Systems Constitutional: No chills; dizziness; No fever; weakness EENTM: no symptoms reported Respiratory: orthopnea Cardiovascular: No chest pain, No Hx of Intervention Gastrointestinal: see HPI Genitourinary: no symptoms reported Musculoskeletal: muscle weakness Skin: no symptoms reported Psychiatric/Neurological: Anxiety, Depressed Physical Exam Physical Exam Vital Signs Vital Signs - First Documented 10/11/19 10/11/19 10/12/19 09:40 11:40 11:30 Temp 36.4 Pulse 91 Resp 18 B/P (MAP) 133/79 (97) Pulse Ox 100 O2 Delivery Room Air O2 Flow Rate 5 Capillary Refill : Less Than 3 Seconds Height, Weight, BMI Height: '" Weight: lbs. oz. kg; 18.53 BMI Method: General Appearance: No Apparent Distress, Chronically ill, Cachetic HEENT: PERRL/EOMI, Moist Mucous Membranes; No Scleral Icterus (L), No Scleral Icterus (R) Neck: Normal Inspection, Supple Respiratory: Lungs Clear, No Accessory Muscle Use, No Respiratory Distress Cardiovascular: Regular Rate, Rhythm, No Murmur Gastrointestinal: Normal Bowel Sounds, Non Tender, Soft, Distended; No Guarding; Hepatomegaly; No Rebound, No Tenderness Extremity: No Calf Tenderness, No Pedal Edema Neurologic/Psychiatric: Alert, Oriented x3, Normal Mood/Affect Results Results/Procedures Labs Laboratory Tests 10/11/19 18:59 10/12/19 05:00 10/13/19 06:45 Patient resulted labs reviewed. Assessment/Plan Admission Diagnosis Upper GI Bleed Admission Status: Observation Assessment and Plan Upper GI Bleed Esophageal Varices Portal Hypertension Ascites Continue on Protonix Surgery consulted, appreciate recs Plan for EGD tomorrow Albumin ordered H&H tonight Low threshold for transfusion- T&S in the ER Dizziness/weakness Likely intravascularly depleted Albumin ordered PT/OT May be a good candidate for IRF Clinical Quality Measures DVT/VTE Risk/Contraindication: Risk Factor Score Per Nursin RFS Level Per Nursing on Admit: 4+=Very High YOHANNES CALDERON MD Oct 11, 2019 14:29
--- NOTE | 2019-10-11 14:48 | NUR ---
SPOKE WITH THE PT TO COMPLETE THE MED REC THE PT DENIES TAKING ANY PRESCRIPTION MEDICATIONS AND ONLY TAKES OTC MEDS OTC MEDS: NEXIUM GAS-X PROBIOTIC TYLENOL
[2019-10-11 16:27] VITALS: BP 107/71
--- OUTSIDE RECORDS SUMMARY | 2019-10-11 16:37 | XMS REPORT | Continuity of Care Document ---
Author Organization Unknown Address Unknown Phone Unavailable Allergies Active Description Code Type Severity Reaction Onset Reported/Identified Relationship to Patient Clinical Status Yes NSAIDS (Non-Steroidal Anti-Inflamma [id number] Drug Allergy Unknown N/A 08/29/2019 Medications There is no data. Problems Date Dx Coded Attending Type Code Diagnosis Diagnosed By 08/29/2019 EDMOND VANG MD Ot R18. 8 OTHER ASCITES 08/30/2019 EDMOND VANG MD Ot R18. 8 OTHER ASCITES 09/06/2019 EDMOND VANG MD Ot R18. 8 OTHER ASCITES 09/20/2019 BIB PETERSON Ot K72.90 HEPATIC FAILURE, UNSPECIFIED WITHOUT COM 09/20/2019 BIB [facility]ERSON Ot R18.8 OTHER ASCITES 09/20/2019 BIB [facility] Ot Z86.718 PERSONAL HISTORY OF OTHER VENOUS THROMBO 09/21/2019 ZURI VALVERDE MD, Ot K76.6 PORTAL HYPERTENSION 09/21/2019 ZURI VALVERDE MD, Ot R18.8 OTHER ASCITES 09/21/2019 ZURI VALVERDE MD Ot Z90.49 ACQUIRED ABSENCE OF OTHER SPECIFIED PART 09/21/2019 ZURI VALVERDE MD, Ot Z98.89 0 OTHER SPECIFIED POSTPROCEDURAL STATES 10/07/2019 ZURI VALVERDE MD, Ot I81 PORTAL VEIN THROMBOSIS 10/07/2019 ZURI VALVERDE MD, Ot R18.8 OTHER ASCITES Procedures There is no data. Results There is no data. Encounters ACCT No. Visit Date/Time Discharge Status Pt. Type Provider Facility Loc./Unit Complaint [id number] 10/06/2019 09:43:00 020 12:05:00 DIS Outpatient ZURI VALVERDE MD [facility] RAD ASCITIES [id number] 09/19/2019 12:16:00 020 17:25:00 DIS Outpatient ZURI VALVERDE MD [facility] ER PARACENTESIS [id number] 09/19/2019 09:27:00 12:25:00 DIS Outpatient BIB [facility] ER FLUID ON STOMACH [id number] 08/30/2019 09:11:00 13:44:00 DIS Outpatient CIERA SANCHEZ, EDMOND Edwards [facility] RAD ASCITES FOR PARACENTESI S [id number] 08/29/2019 09:03:00 09:44:00 DIS Emergency CIERA SANCHEZ, EDMOND Edwards [facility] ER FLUID BUILD UP IN ABD [id number] 10/11/2019 11:20:[address] Inpatient TESSY SANCHEZ, YOHANNES Larry [facility] 4TH GI BLEED
--- OUTSIDE RECORDS SUMMARY | 2019-10-11 16:39 | XMS REPORT | Continuity of Care Document ---
Author Organization Unknown Address Unknown Phone Unavailable Allergies Active Description Code Type Severity Reaction Onset Reported/Identified Relationship to Patient Clinical Status Yes NSAIDS (Non-Steroidal Anti-Inflamma [id number] Drug Allergy Unknown N/A 08/29/2019 Medications There [...] Status Pt. Type Provider Facility Loc./Unit Complaint [id number] 10/06/2019 09:43:00 020 12:05:00 DIS Outpatient ZURI VALVERDE MD [facility] RAD ASCITIES [id number] 09/19/2019 12:16:00 020 17:25:00 DIS Outpatient ZURI VALVERDE MD [facility] ER PARACENTESIS [id number] 09/19/2019 09:27:00 12:25:00 DIS Outpatient BIB [facility] ER FLUID ON STOMACH [id number] 08/30/2019 09:11:00 13:44:00 DIS Outpatient CIERA SANCHEZ, EDMOND Edwards [facility] RAD ASCITES FOR PARACENTESI S [id number] 08/29/2019 09:03:00 09:44:00 DIS Emergency CIERA SANCHEZ, EDMOND Edwards [facility] ER FLUID BUILD UP IN ABD [id number] 10/11/2019 11:20:[address] Inpatient TESSY SANCHEZ, YOHANNES Larry [facility] 4TH GI BLEED
[2019-10-11] MEDS: SIMETHICONE 80 MG (MYLICON) CHEW PO SCH ×2 (16:53→21:07)
[2019-10-11] MEDS ORDERED: NON-FORMULARY MEDICATION 1 EA EA (Simethicone (Gas-X) 125 MG) PO SCH (17:00)
[2019-10-11 19:07] LABS: HEMOGLOBIN 7.6 G/DL (13.3-17.7)
[2019-10-11 19:38] VITALS: BP 105/73
[2019-10-11] MEDS ORDERED: ALBUMIN 25% 25 GM/100 ML 100 ML IV ONE (21:00)
[2019-10-11] MEDS: ACETAMINOPHEN 500 MG TAB (TYLENOL) PO PRN (21:06)
[2019-10-11 23:46] VITALS: BP 103/66
[2019-10-12] VITALS (25 sets, daily range): BP systolic 78–125; BP diastolic 47–75
[2019-10-12 05:29] LABS: BASOPHILS % (AUTO) 0 % (0-10); EOSINOPHILS % (AUTO) 1 % (0-10); HEMATOCRIT 21 % (40-54); LYMPHOCYTES # (AUTO) 0.4 X 10^3 (1.0-4.0); LYMPHOCYTES % (AUTO) 10 % (12-44); MEAN CORPUSCULAR HGB CONC 31 G/DL (32-36); MEAN CORPUSCULAR VOLUME 77 FL (80-99); MEAN PLATELET VOLUME 9.2 FL (7.4-10.4); MONOCYTES # (AUTO) 0.5 X 10^3 (0.0-1.0); MONOCYTES % (AUTO) 12 % (0-12); NEUTROPHILS # (AUTO) 3.1 X 10^3 (1.8-7.8); NEUTROPHILS % (AUTO) 78 % (42-75); PLATELET COUNT 95 10^3/uL (130-400); RED CELL DISTRIBUTION WIDTH 20.6 % (10.0-14.5)
[2019-10-12 05:33] LABS: HEMOGLOBIN 6.5 G/DL (13.3-17.7); MEAN CORPUSCULAR HEMOGLOBIN 23 PG (25-34)
--- NOTE | 2019-10-12 05:41 | NUR ---
PT HGB 6.5. DR VALVERDE CALLED. DR ORDERED 2 UNITS OF BLOOD.
[2019-10-12] MEDS ORDERED: NS IV 500 ML 500 ML IV SCH (05:45)
[2019-10-12 05:47] LABS: ALBUMIN 3.4 GM/DL (3.2-4.5); CHLORIDE 102 MMOL/L (98-107); POTASSIUM 4.3 MMOL/L (3.6-5.0); SODIUM 132 MMOL/L (135-145)
[2019-10-12 05:50] LABS: GLUCOSE 106 MG/DL (70-105); TOTAL PROTEIN 6.9 GM/DL (6.4-8.2)
[2019-10-12 05:51] LABS: CARBON DIOXIDE 18 MMOL/L (21-32)
[2019-10-12 05:52] LABS: BILIRUBIN,TOTAL 0.5 MG/DL (0.1-1.0)
[2019-10-12 05:53] LABS: ALKALINE PHOSPHATASE 58 U/L (40-136); GFR ESTIMATED > 60
[2019-10-12 05:54] LABS: BUN/CREATININE RATIO 49
[2019-10-12 05:56] LABS: ALANINE AMINOTRANSFERASE 22 U/L (0-55)
[2019-10-12] MEDS: CATHETER FLUSH 10 ML SYR IV SCH ×3 (06:29→23:02)
[2019-10-12] MEDS: LACTOBACILLUS ACIDOPHILUS (PROBIOTIC) CAPSULE PO SCH (07:34)
[2019-10-12] MEDS: SIMETHICONE 80 MG (MYLICON) CHEW PO SCH ×4 (07:34→23:20)
[2019-10-12] MEDS ORDERED: NON-FORMULARY MEDICATION 1 EA EA (L.acidoph & Paracasei,B.lactis (Probiotic) 1 EACH) PO SCH (09:00)
--- NOTE | 2019-10-12 09:04 | Physical Therapy Evaluation ---
PT Evaluation-General Medical Diagnosis Admission Date Oct 11, 2019 at 11:20 Medical Diagnosis: GI bleed Onset Date: Oct 11, 2019 Therapy Diagnosis Therapy Diagnosis: impaired mobility, strength, endurance Precautions Precautions/Isolations: Standard Precautions Weight Bear Status Right Lower Extremity: Right Weight Bearing/Tolerated Left Lower Extremity: Left Weight Bearing/Tolerated Referral Physician: Norma Calderon MD Reason for Referral: Evaluation/Treatment Medical History Additional Medical History Past Medical History Surgeries: Abdominal, Gallbladder Cardiac: Hypotension Genitourinary: Kidney Stones Gastrointestinal: Abdominal Hernia, Liver Disease/Jaundice History of Blood Disorders: No Reviewed History: Yes Social History Home: Single Level Current Living Status: Alone Entry Into Home: Stairs Without Railing PT Steps Into Home: 1 Patient states he is currently staying at a motel, has one step to enter Prior Prior Level of Function SCALE: Activities may be completed with or without assistive devices. 1-Typenvzklq-eoxqifi completes the activity by him/herself with no assistance from a helper. 5-Set-up or Clean-up Assistance-helper sets up or cleans up; patient completes activity. [place] assists only prior to or following the activity. 4-Supervision or Touching Assistance-helper provides verbal cues and/or touching/steadying and/or contact guard assistance as patient completes activity. Assistance may be provided throughout the activity or intermittently. 3-Partial/Moderate Assistance-helper does LESS THAN HALF the effort. [place] lifts, holds or supports trunk or limbs, but provides less than half the effort. 2-Substantial/Maximal Assistance-helper does MORE THAN HALF the effort. [place] lifts or holds trunk or limbs and provides more than half the effort. 1-Zzfrveqps-fggimp does ALL the effort. Patient does none of the effort to complete the activity. Or, the assistance of 2 or more helpers is required for the patient to complete the activity. If activity was not attempted, code reason: 7-Patient Refused. 9-Not Applicable-not attempted and the patient did not perform the activity before the current illness, exacerbation or injury. 10-Not Attempted due to Environmental Limitations-(lack of equipment, weather restraints, etc.). 88-Not Attempted due to Medical Conditions or Safety Concerns. Bed Mobility: 6 Transfers (B,C,W/C): 6 Gait: 6 Stairs: 6 Indoor Mobility (Ambulation): Independent Stairs: Independent Patient doesn't use an assistive device normally but was using a SPC recently. PT Evaluation-Current Subjective Patient in bed pre tx, agrees to PT, has 5/10 pain in both legs, he says because of inactivity. Pt/Family Goals "to get stronger" Objective Patient Orientation: Person, Place, Situation Attachments: IV ROM/Strength ROM Lower Extremities WNL Strength Lower Extremities 3+/5 gross BLE Sensory Vision: Functional Hearing: Functional Sensation Right Lower Extremit: Intact Sensation Left Lower Extremity: Intact Transfers Roll Left to Right (QC): 6 Sit to Lying (QC): 6 Lying to Sitting/Side of Bed(Q: 6 Sit to Stand (QC): 4 Chair/Mwd-ur-Pvvrs Xfer(QC): 4 CGA for sit to stand and transfers. Patient is a little light headed with sitting and standing, he has low hemoglobin and is currently getting blood. Light headedness improves a little after standing for a minute. Gait Does the Patient Walk?: Yes Mode of Locomotion: Walk Anticipated Mode of Locomotion: Walk Walk 10 feet (QC): 4 Walk 50 ft with 2 Turns(QC): 4 Walk 150 ft (QC): 4 Distance: 500' Gait Assistive Device: FWW Comments/Gait Description SBA, no unsteadiness or LOB, slow but steady ambulation Balance Sitting Static: Normal Sitting Dynamic: Normal Standing Static: Good Standing Dynamic: Good Assessment/Needs Patient has impaired mobility, strength, endurance. Some light headedness with sitting and standing but improves fairly quickly. Rehab Potential: Fair PT Inseamer Goals Inseamer Goals PT Senior Care Goals Time Frame: Oct 19, 2019 Roll Left & Right (QC): 6 Sit to Lying (QC): 6 Lying-Sitting on Side/Bed(QC): 6 Sit to Stand (QC): 6 Chair/Ojk-bf-Hhife Xfer(QC): 6 Walk 10 feet (QC): 6 Walk 50ft with 2 Turns (QC): 6 Walk 150 ft (QC): 6 PT Plan Problem List Problem List: Activity Tolerance, Functional Strength, Safety, Balance, Gait, Transfer Treatment/Plan Treatment Plan: Continue Plan of Care Treatment Plan: Education, Functional Activity Jacob, Functional Strength, Gait, Safety, Therapeutic Exercise, Transfers Treatment Duration: Oct 19, 2019 Frequency: 11 times per week Estimated Hrs Per Day: .25 hour per day Patient and/or Family Agrees t: Yes Safety Risks/Education Patient Education: Gait Training, Transfer Techniques, Correct Positioning, Safety Issues Teaching Recipient: Patient Teaching Methods: Demonstration, Discussion Response to Teaching: Reinforcement Needed Discharge Recommendations Plan Patient will perform bed mobility and transfer training, balance and endurance training, functional strengthening, stair training, gait training, and education, to improve functional mobility and independence at home. Therapy Discharge Recommendati: Home & Family Time/GCodes Time In: 0830 Time Out: 0846 Total Billed Treatment Time: 16 Total Billed Treatment 1 visit IRAM Russell' MEENU HULL PT Oct 12, 2019 09:04
--- NOTE | 2019-10-12 10:17 | Progress Note-Pre Operative ---
Pre-Operative Progress Note H&P Reviewed The H&P was reviewed, patient examined and no changes noted. Date Seen by Provider: Oct 12, 2019 Time Seen by Provider: 09:00 Date H&P Reviewed: Oct 12, 2019 Time H&P Reviewed: 09:00 Pre-Operative Diagnosis: upper GI bleed ZURI VALVERDE MD Oct 12, 2019 10:17
[2019-10-12] MEDS ORDERED: NS IV 500 ML 500 ML ONE (10:32)
--- NOTE | 2019-10-12 10:46 | Occupational Therapy Eval ---
OT Evaluation-General/PLF Medical Diagnosis Admission Date Oct 11, 2019 at 11:20 Medical Diagnosis: GI bleed Onset Date: Oct 11, 2019 Therapy Diagnosis Therapy Diagnosis: decreased self care skills Precautions Precautions/Isolations: Standard Precautions Referral Physician: Norma Calderon MD Medical History Pertinent Medical History: HTN Additional Medical History portal vein thrombosis, esophageal varices, hernia repair, kidney stones, liver disease Social History Home: Single Level Current Living Status: Alone Entry Into Home: Stairs Without Railing Steps Into Home: 1 ADL-Prior Level of Function SCALE: Activities may be completed with or without assistive devices. 3-Wxvhnamtfo-sjfewvg completes the activity by him/herself with no assistance from a helper. 5-Set-up or Clean-up Assistance-helper sets up or cleans up; patient completes activity. [place] assists only prior to or following the activity. 4-Supervision or Touching Assistance-helper provides verbal cues and/or touching/steadying and/or contact guard assistance as patient completes activity. Assistance may be provided throughout the activity or intermittently. 3-Partial/Moderate Assistance-helper does LESS THAN HALF the effort. [place] lifts, holds or supports trunk or limbs, but provides less than half the effort. 2-Substantial/Maximal Assistance-helper does MORE THAN HALF the effort. [place] lifts or holds trunk or limbs and provides more than half the effort. 5-Wqxgphpit-zfvqqq does ALL the effort. Patient does none of the effort to complete the activity. Or, the assistance of 2 or more helpers is required for the patient to complete the activity. If activity was not attempted, code reason: 7-Patient Refused. 9-Not Applicable-not attempted and the patient did not perform the activity bef ore the current illness, exacerbation or injury. 10-Not Attempted due to Environmental Limitations-(lack of equipment, weather r estraints, etc.). 88-Not Attempted due to Medical Conditions or Safety Concerns. ADL PLOF Comments Pt states he lives in [place], but was traveling through. Has been staying in a hotel. Pt states he is normally able to take care of himself independently, but has been weaker the last few days. Self Care: Independent Drive Self: Yes OT Current Status Subjective Pt in bed, agrees to therapy. Currently receiving blood. Mental Status/Objective Patient Orientation: Person, Place, Situation Attachments: IV Current Hand Dominance: Right Upper Extremity ROM Grossly WFL Upper Extremity Coordination Intact Upper Extremity Strength Grossly 4+/5 ADL-Treatment ADL-Current Pt supine to sit independently. Pt sat EOB with good balance during UE asse ssment. Pt donned shoes with set up. Performed sit to stand with SBA. Pt states he ambulated earlier this morning and has been getting up to restroom with assist secondary to IV pole. Declined toileting at this time. Pt is already dressed. Pt returned to bed and completed sit to supine without assist. Pt resting in bed with needs met after session. Education OT Patient Education: Rehab process Teaching Recipient: Patient Teaching Methods: Discussion Response to Teaching: Verbalize Understanding OT Board Certified Orthodontist Goals Board Certified Orthodontist Goals Time Frame: Oct 19, 2019 Eating (QC): 6 Oral Hygiene (QC): 6 Toileting Hygiene (QC): 6 Shower/Bathe Self (QC): 6 Upper Body Dressing (QC): 6 Lower Body Dressing (QC): 6 On/Off Footwear (QC): 6 Additional Goals: 2-Verbalize Understanding, 3-ImproveStrength/Jacob 1=Demonstrate adherence to instructed precautions during ADL tasks. 2=Patient will verbalize/demonstrate understanding of assistive devices/modifications for ADL. 3=Patient will improve strength/tolerance for activity to enable patient to perform ADL's. OT Education/Plan Problem List/Assessment Assessment: Decreased Activ Tolerance, Dependent Transfers, Impaired Self-Care Skills Pt to benefit from skilled OT intervention for ADL training, transfers, strengthening, and safety education to increase level of independence and allow safe discharge. Discharge Recommendations Plan/Recommendations: Continue POC Treatment Plan/Plan of Care Treatment,Training & Education: Yes Patient would benefit from OT for education, treatment and training to promote independence in ADL's, mobility, safety and/or upper extremity function for ADL's. Plan of Care: ADL Retraining, Functional Mobility, UE Funct Exercise/Act Treatment Duration: Oct 19, 2019 Frequency: 5 times per week Estimated Hrs Per Day: .25 hour per day Rehab Potential: Fair Time/GCodes Start Time: 10:20 Stop Time: 10:38 Total Time Billed (hr/min): 18 Billed Treatment Time 1 visit, EVKendy(18minutes) JESSIE CLAYTON OT Oct 12, 2019 10:46
[2019-10-12] MEDS ORDERED: LIDOCAINE JELLY 2% 6 ML SYRINGE ONE (11:27)
[2019-10-12] MEDS ORDERED: fentaNYL INJECTION 100 MCG/2 ML AMP ONE (11:27)
[2019-10-12] MEDS ORDERED: MIDAZOLAM 5 MG/5 ML (VERSED) VIAL ONE ×2 (11:27)
[2019-10-12] MEDS ORDERED: NS IV 500 ML 500 ML IV PRN (11:43)
[2019-10-12] MEDS ORDERED: fentaNYL INJECTION 100 MCG/2 ML AMP IVP ONE (11:45)
[2019-10-12] MEDS: MIDAZOLAM 5 MG/5 ML (VERSED) VIAL IV PRN ×2 (11:45→11:50)
[2019-10-12] MEDS ORDERED: LIDOCAINE JELLY 2% 6 ML SYRINGE MM PRN (11:45)
--- NOTE | 2019-10-12 12:09 | Progress Note-Post Operative ---
Post-Operative Progess Note Surgeon (s)/Terrestrial Ecologist (s) Surgeon ZURI VALVERDE MD Terrestrial Ecologist: none Pre-Operative Diagnosis upper GI bleed Post-Operative Diagnosis grade 3 esophageal varices, small HH, mild-moderate gastritis, no active bleed Procedure & Operative Findings Date of Procedure 10/12/19 Procedure Performed/Findings EGD with bx. Anesthesia Type cs Estimated Blood Loss Estimated blood loss (mL): minimal Specimens/Packing Specimens Removed antrum ZURI VALVERDE MD Oct 12, 2019 12:09
[2019-10-12] MEDS: PANTOPRAZOLE DRIP 200 MG/NS 100 ML IV SCH ×2 (12:42)
--- NOTE | 2019-10-12 12:53 | OPERATIVE REPORT ---
DATE OF SERVICE: 10/12/2019 ATTENDING PHYSICIAN: Dr. Calderon. PREOPERATIVE DIAGNOSES: Anemia, weakness, dark stools. History of portal venous system thrombosis. POSTOPERATIVE DIAGNOSES: Grade III esophageal varices with no active bleeding, however, have shown signs of potential previous bleed, small hiatal hernia 1 cm in size, mild to moderate gastritis. No distal obstructions. No active bleeding. PROCEDURE: EGD with biopsy. SURGEON: Zuri Valverde MD ANESTHESIA: Conscious sedation. ESTIMATED BLOOD LOSS: Minimal. FINDINGS: Same as postoperative diagnoses. DISPOSITION: The patient tolerated the procedure well. INDICATIONS: The patient is a 69-year-old male known to us. He recently moved from [place], [place], where he was working and then retired. 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 He has never been a drinker. He has seen multiple ethylbenzene converter helper and specialist in the past and the recommendation was to proceed with medical management due to the complexity and involvement of surgical bypass versus liver transplantation. He has temporarily moved to this region to be close to family members. Since being here, he has had recurrent episodes of recurrent symptomatic ascites. He is very strict with his diet and only make his own food and eats his own food due to allow himself to comply with a very low sodium diet. He also closely monitor his water intake on a daily basis. Despite this, his ascites has been more frequent and symptomatic. He has had three or four paracenteses done in the past few months. He presented on this admission with weakness and was found to be anemic with a hemoglobin in the 8 range. He also is most likely experiencing some hypoproteinemia due to the protein extravasation into the peritoneal cavity, which has been extracted on a routine basis. Emergency Department staff had reported some dark tarry stools. DESCRIPTION OF PROCEDURE: The patient was brought to the endoscopy suite, laid in the left lateral decubitus position with head slightly elevated. After adequate IV pain and sedative medications and conscious sedation anesthesia, the mouthpiece was applied. The endoscope was placed in the mouth, visualizing the pharynx and hypopharyngeal region. Vocal cords, epiglottis and vallecula identified and appeared to be normal. The endoscope was gently intubated into the esophageal opening and esophagus insufflated. The endoscope was then advanced through the first, second and third portions of the esophagus at the lower third of the esophagus. Grade III esophageal varices were identified, which were greater than one-third of the luminal diameter of the esophagus. There was no active bleeding; however, there may have been signs of some previous bleed. There is an area of slight redness with overlying blood clot, which was small. The endoscope was then advanced in the stomach and endoscope retroflexed visualizing no small hiatal hernia 1 cm in size. There was a mild to moderate gastritis. No formal ulcerations, polyps, or any neoplasms. A biopsy was taken of the antrum to rule out H. pylori with visualization of good hemostasis. The endoscope was then advanced to the pylorus and the first and second portions of duodenum, which appeared normal with no distal obstructions. No active bleeding sources identified. The endoscope was then slowly withdrawn while taking a second look and suctioning of residual air with no additional findings. The patient tolerated the procedure well. We feel that he potentially did have an esophageal variceal bleed and these will need to be evaluated and treated again by endoscopic specialist due to esophageal banding. Also, we are unsure of any potential vascular bypass procedure that would bypass the subpleural blood flowed to systemic venous. We are unsure if a transjugular intraportosystemic shunt would help and because of these questions, we feel that he may need to be referred to high level of care soon. Job ID: [id number] DocumentID: [id number] Dictated Date: 10/12/2019 12:20:11 Electrical Linesworker Date: 10/12/2019 12:52:44 Dictated By: ZURI VALVERDE MD [facility]
--- NOTE | 2019-10-12 13:26 | Progress Note - Hospitalist ---
Subjective HPI/CC On Admission Date Seen by Provider: Oct 12, 2019 Time Seen by Provider: 13:21 Pt is a 69yoCM with a PMH of portal vein thrombosis with secondary portal hypertension and liver disease who presented to the ER with complaint of bloody stools. He states that normally lives in [place], [place] but was travelling to visit friends when travel restrictions were placed and he decided to stay here. I spoke with he and his daughter (internal medicine physician) who state that he has had recurrent episodes of ascites and need for paracentesis. He follows a very strict low sodium diet to manage his ascites. he reports he takes in about 500mg of sodium per day. He was previously on Lasix and Spirolactone to manage his ascites but has been unable to tolerate them due to dizziness and low blood pressure. Per his daughter he has had multiple episode of GI bleeding in the last year and a half. His most recent was in May of 2019 and he was found to have gastric ulcers and esophageal varices which she states were cauterized. Today he noted bloody stools and was found to have dark tarry stools in the ER with a positive FOBT. Subjective/Events-last exam Saw postop from EGD. States no pain and feeling well but sleepy. No complaints. Objective Exam Vital Signs Vital Signs Date Time Temp Pulse Resp B/P (MAP) Pulse Ox O2 Delivery O2 Flow Rate FiO2 10/13/19 08:00 36.5 80 18 117/67 (84) 100 Room Air 10/12/19 12:10 5 Capillary Refill : Less Than 3 Seconds General Appearance: No Apparent Distress, Chronically ill, Cachetic Respiratory: Lungs Clear, No Respiratory Distress Cardiovascular: Regular Rate, Rhythm, No Murmur Gastrointestinal: Normal Bowel Sounds, Non Tender, Soft Neurologic/Psychiatric: Alert, Oriented x3 Results/Procedures Lab Laboratory Tests 10/13/19 06:45 Patient resulted labs reviewed. Assessment/Plan Assessment and Plan Assess & Plan/Chief Complaint Upper GI Bleed Esophageal Varices Portal Hypertension Ascites Continue on Protonix Surgery consulted, appreciate recs s/p EGD- no active bleed but esophageal varices noted Albumin given last night Hgb 6.5-transfused this morning Dizziness/weakness Likely intravascularly deplete Albumin ordered PT/OT Diagnosis/Problems Diagnosis/Problems (1) Upper GI bleed Status: Acute (2) Portal vein thrombosis Status: Acute (3) Dizziness Status: Acute Clinical Quality Measures DVT/VTE Risk/Contraindication: Risk Factor Score Per Nursin RFS Level Per Nursing on Admit: 4+=Very High YOHANNES STILL MD Oct 12, 2019 13:26
--- NOTE | 2019-10-12 15:31 | Physical Therapy Progress Note ---
Therapy Progress Note Pt declined PT this visit. "I don't want to walk until I have had something to eat or drink." Pt has been NPO this date, but thinks he will get to eat later. No treatment rendered this date. DENA ALFREDO PT Oct 12, 2019 15:30
[2019-10-12] MEDS: ACETAMINOPHEN 500 MG TAB (TYLENOL) PO PRN (20:27)
[2019-10-13] MEDS: CATHETER FLUSH 10 ML SYR IV SCH ×3 (05:57→22:00)
[2019-10-13 06:50] LABS: HEMOGLOBIN 7.7 G/DL (13.3-17.7)
[2019-10-13 08:00] VITALS: BP 117/67
[2019-10-13] MEDS: LACTOBACILLUS ACIDOPHILUS (PROBIOTIC) CAPSULE PO SCH (08:47)
[2019-10-13] MEDS: SIMETHICONE 80 MG (MYLICON) CHEW PO SCH ×4 (08:48→21:16)
[2019-10-13] MEDS ORDERED: PANTOPRAZOLE 40 MG (PROTONIX) VIAL IV SCH (10:30)
--- NOTE | 2019-10-13 10:31 | Progress Note - Hospitalist ---
Subjective HPI/CC On Admission Date Seen by Provider: Oct 13, 2019 Time Seen by Provider: 10:25 Pt is a 69yoCM with a PMH of portal vein thrombosis with secondary portal hypertension and liver disease who presented to the ER with complaint of bloody stools. He states that normally lives in [place], [place] but was travelling to visit friends when travel restrictions were placed and he decided to stay here. I spoke with he and his daughter (internal medicine physician) who state that he has had recurrent episodes of ascites and need for paracentesis. He follows a very strict low sodium diet to manage his ascites. he reports he takes in about 500mg of sodium per day. He was previously on Lasix and Spirolactone to manage his ascites but has been unable to tolerate them due to dizziness and low blood pressure. Per his daughter he has had multiple episode of GI bleeding in the last year and a half. His most recent was in May of 2019 and he was found to have gastric ulcers and esophageal varices which she states were cauterized. Today he noted bloody stools and was found to have dark tarry stools in the ER with a positive FOBT. Subjective/Events-last exam pt reports feeling better today but still quite dizzy when walking. Does not feel safe to ambulate alone. Objective Exam Vital Signs Vital Signs Date Time Temp Pulse Resp B/P (MAP) Pulse Ox O2 Delivery O2 Flow Rate FiO2 10/13/19 08:00 36.5 80 18 117/67 (84) 100 Room Air 10/12/19 12:10 5 Capillary Refill : Less Than 3 Seconds General Appearance: No Apparent Distress, Chronically ill, Cachetic Respiratory: Lungs Clear, No Respiratory Distress Cardiovascular: Regular Rate, Rhythm, No Murmur Gastrointestinal: Normal Bowel Sounds, Soft, Distended Neurologic/Psychiatric: Alert, Oriented x3 Results/Procedures Lab Laboratory Tests 10/13/19 06:45 Patient resulted labs reviewed. Assessment/Plan Assessment and Plan Assess & Plan/Chief Complaint Upper GI Bleed Esophageal Varices Portal Hypertension Ascites Continue on Protonix Surgery consulted, appreciate recs s/p EGD- no active bleed but esophageal varices noted Albumin given on admission Hgb 7.7 today, still dizzy with ambulation- not safe to discharge Dizziness/weakness Not able to ambulate alone yet PT/OT Diagnosis/Problems Diagnosis/Problems (1) Upper GI bleed Status: Acute (2) Portal vein thrombosis Status: Acute (3) Dizziness Status: Acute Clinical Quality Measures DVT/VTE Risk/Contraindication: Risk Factor Score Per Nursin RFS Level Per Nursing on Admit: 4+=Very High YOHANNES STILL MD Oct 13, 2019 10:31
[2019-10-13] MEDS ORDERED: NS IV 500 ML 500 ML IV SCH (11:30)
--- NOTE | 2019-10-13 11:33 | Physical Therapy Daily Note ---
PT Daily Note-Current Subjective Pt in bed, states "I am resting right now. I will walk after lunch." Pt declines PT at this time. Pt's nurse reports pt walked this am with nurse aid in halls. Pt agreeable to PT in pm. Transfers SCALE: Activities may be completed with or without assistive devices. 9-Qpbgsxwowg-hqkhofl completes the activity by him/herself with no assistance from a helper. 5-Set-up or Clean-up Assistance-helper sets up or cleans up; patient completes activity. [place] assists only prior to or following the activity. 4-Supervision or Touching Assistance-helper provides verbal cues and/or touching/steadying and/or contact guard assistance as patient completes activity. Assistance may be provided throughout the activity or intermittently. 3-Partial/Moderate Assistance-helper does LESS THAN HALF the effort. [place] lifts, holds or supports trunk or limbs, but provides less than half the effort. 2-Substantial/Maximal Assistance-helper does MORE THAN HALF the effort. [place] lifts or holds trunk or limbs and provides more than half the effort. 0-Yepoifzxv-ezcplw does ALL the effort. Patient does none of the effort to complete the activity. Or, the assistance of 2 or more helpers is required for the patient to complete the activity. If activity was not attempted, code reason: 7-Patient Refused. 9-Not Applicable-not attempted and the patient did not perform the activity before the current illness, exacerbation or injury. 10-Not Attempted due to Environmental Limitations-(lack of equipment, weather restraints, etc.). 88-Not Attempted due to Medical Conditions or Safety Concerns. Weight Bearing Right Lower Extremity: Right Weight Bearing/Tolerated Left Lower Extremity: Left Weight Bearing/Tolerated PT Histologic Aide Goals Senior Living Goals PT Senior Living Goals Time Frame: Oct 19, 2019 Roll Left & Right (QC): 6 Sit to Lying (QC): 6 Lying-Sitting on Side/Bed(QC): 6 Sit to Stand (QC): 6 Chair/Slv-dv-Btjrd Xfer(QC): 6 Walk 10 feet (QC): 6 Walk 50ft with 2 Turns (QC): 6 Walk 150 ft (QC): 6 PT Plan Treatment/Plan Treatment Plan: Continue Plan of Care Treatment Plan: Education, Functional Activity Jacob, Functional Strength, Gait, Safety, Therapeutic Exercise, Transfers Treatment Duration: Oct 19, 2019 Frequency: 11 times per week Estimated Hrs Per Day: .25 hour per day Patient and/or Family Agrees t: Yes Time/GCodes Time In: 1125 Time Out: 1130 Total Billed Treatment Time: 0 Total Billed Treatment 1, no treatment MERCED SMITH CPTA Oct 13, 2019 11:32
--- NOTE | 2019-10-13 13:32 | Progress Note ---
Subjective Date Seen by a Provider: Oct 13, 2019 Time Seen by a Provider: 09:50 Subjective/Events-last exam Patient seen with Dr. [place]. Patient reports still fatigued and dizzy. Tolerating diet with no N/V. Reports blood in stool is clearing up. Denies any abdominal pain. He reports he is trying to ambulate more, but feels unsteady yet. Objective Exam Vital Signs Date Time Temp Pulse Resp B/P (MAP) Pulse Ox O2 Delivery O2 Flow Rate FiO2 10/13/19 08:00 36.5 80 18 117/67 (84) 100 Room Air 10/12/19 23:14 37.2 83 18 111/72 (85) 99 Room Air 10/12/19 20:20 Room Air 10/12/19 19:49 37.6 89 18 115/70 (85) 100 Room Air 10/12/19 16:00 36.9 78 16 108/69 (82) 99 Room Air I & O 10/13/19 07:00 Intake Total 1445 ml Output Total 480 ml Balance 965 ml Capillary Refill : Less Than 3 Seconds General Appearance: No Apparent Distress, WD/WN Neck: Full Range of Motion, Normal Inspection, Supple Respiratory: Normal Breath Sounds, No Accessory Muscle Use, No Respiratory Distress Cardiovascular: Regular Rate, Rhythm, No Murmur Gastrointestinal: normal bowel sounds, non tender, soft Extremity: Normal Capillary Refill, Normal Inspection, Normal Range of Motion Neurologic/Psychiatric: Alert, Oriented x3 Skin: Normal Color, Warm/Dry Results Lab Laboratory Tests 10/13/19 06:45: Hemoglobin 7.7L, Hematocrit 24L 10/13/19 11:08: Lab Scanned Report Transfusion Reaction Form Assessment/Plan Assessment/Plan Assess & Plan/Chief Complaint A 69-year-old male with GI bleed and esophageal varices. VSS Hgb 7.7 but patient still appears a little symptomatic and will transfuse 1 unit PRBCs Will switch to PO protonix. Continue with diet and ambulation. Plan for home soon. Clinical Quality Measures DVT/VTE Risk/Contraindication: Risk Factor Score Per Nursin RFS Level Per Nursing on Admit: 4+=Very High DONNIE RAMOS MASSEUR/MASSEUSE Oct 13, 2019 13:32
[2019-10-13] MEDS ORDERED: NS IV 500 ML 500 ML ONE (13:47)
--- NOTE | 2019-10-13 13:50 | Physical Therapy Daily Note ---
PT Daily Note-Current Subjective Pt up in chair, agreeable to PT. Pt states "My legs are still weak. I don't feel steady enough to walk without the walker." Pt rates (B) upper thigh pain 5/10. Mental Status Patient Orientation: Person, Place, Situation Transfers SCALE: Activities may be completed with or without assistive devices. 7-Qxozklwgjs-tretmqi completes the activity by him/herself with no assistance from a helper. 5-Set-up or Clean-up Assistance-helper sets up or cleans up; patient completes activity. [place] assists only prior to or following the activity. 4-Supervision or Touching Assistance-helper provides verbal cues and/or touching/steadying and/or contact guard assistance as patient completes activity. Assistance may be provided throughout the activity or intermittently. 3-Partial/Moderate Assistance-helper does LESS THAN HALF the effort. [place] lifts, holds or supports trunk or limbs, but provides less than half the effort. 2-Substantial/Maximal Assistance-helper does MORE THAN HALF the effort. [place] lifts or holds trunk or limbs and provides more than half the effort. 8-Wygtsmygi-tjycgq does ALL the effort. Patient does none of the effort to complete the activity. Or, the assistance of 2 or more helpers is required for the patient to complete the activity. If activity was not attempted, code reason: 7-Patient Refused. 9-Not Applicable-not attempted and the patient did not perform the activity before the current illness, exacerbation or injury. 10-Not Attempted due to Environmental Limitations-(lack of equipment, weather restraints, etc.). 88-Not Attempted due to Medical Conditions or Safety Concerns. Weight Bearing Right Lower Extremity: Right Weight Bearing/Tolerated Left Lower Extremity: Left Weight Bearing/Tolerated Gait Training Gait Assistive Device: FWW Pt amb with FWW and SBA x 750ft. Pt amb at slow but steady speed. Assessment Current Status: Good Progress Pt janay well. Slow, steady balance with FWW. Back to bed with call light and all needs met. PT Fci Goals Fci Goals PT Steamer Operator Goals Time Frame: Oct 19, 2019 Roll Left & Right (QC): 6 Sit to Lying (QC): 6 Lying-Sitting on Side/Bed(QC): 6 Sit to Stand (QC): 6 Chair/Haz-fr-Snvcq Xfer(QC): 6 Walk 10 feet (QC): 6 Walk 50ft with 2 Turns (QC): 6 Walk 150 ft (QC): 6 PT Plan Treatment/Plan Treatment Plan: Continue Plan of Care Treatment Plan: Education, Functional Activity Jacob, Functional Strength, Gait, Safety, Therapeutic Exercise, Transfers Treatment Duration: Oct 19, 2019 Frequency: 11 times per week Estimated Hrs Per Day: .25 hour per day Patient and/or Family Agrees t: Yes Time/GCodes Time In: 1320 Time Out: 1335 Total Billed Treatment Time: 15 Total Billed Treatment 1, gait 15' MERCED SMITH CPTA Oct 13, 2019 13:50
[2019-10-13 13:58] VITALS: BP 103/71
[2019-10-13 14:15] VITALS: BP 107/69
--- NOTE | 2019-10-13 14:17 | Occ Therapy Progress Note ---
Therapy Progress Note When OT entered room and introduced self, pt stated that he was getting blood and did not want to do anything else at this time. FRANCIS encouraged pt to participate at bed level. Pt declined. 1-refusal DENA FALLON Oct 13, 2019 14:17
[2019-10-13 16:18] VITALS: BP 113/64
[2019-10-13 17:17] VITALS: BP 111/72
--- NOTE | 2019-10-13 20:40 | NUR ---
Pt called this RN and was requesting to take something for solid stools / constipation. Notified Dr. Reeves, received orders to give stool softener. Pt also requested to not have his vital signs taken at 0000 and 0400. Educated pt on importance of VS, pt understood and insisted that he be not disturb through the night.
[2019-10-13] MEDS: ACETAMINOPHEN 500 MG TAB (TYLENOL) PO PRN (21:15)
[2019-10-13] MEDS ORDERED: DOCUSATE SODIUM 100 MG (COLACE) CAP PO ONE ×2 (21:45→21:55)
[2019-10-14 05:22] LABS: HEMOGLOBIN 8.5 G/DL (13.3-17.7); MEAN PLATELET VOLUME 9.8 FL (7.4-10.4); RED CELL DISTRIBUTION WIDTH 20.4 % (10.0-14.5); WHITE BLOOD COUNT 2.1 10^3/uL (4.3-11.0)
[2019-10-14 05:35] LABS: BUN/CREATININE RATIO 48; CALCIUM 8.4 MG/DL (8.5-10.1); CARBON DIOXIDE 19 MMOL/L (21-32); CHLORIDE 106 MMOL/L (98-107); CREATININE SERUM 0.88 MG/DL (0.60-1.30); GFR ESTIMATED > 60; GLUCOSE 95 MG/DL (70-105); POTASSIUM 3.8 MMOL/L (3.6-5.0); SODIUM 132 MMOL/L (135-145)
[2019-10-14] MEDS: CATHETER FLUSH 10 ML SYR IV SCH ×2 (05:50→13:43)
[2019-10-14] MEDS: SIMETHICONE 80 MG (MYLICON) CHEW PO SCH ×2 (06:35→12:49)
[2019-10-14 08:00] VITALS: BP 107/70
[2019-10-14] MEDS: LACTOBACILLUS ACIDOPHILUS (PROBIOTIC) CAPSULE PO SCH (08:15)
[2019-10-14] MEDS ORDERED: PANTOPRAZOLE 40 MG (PROTONIX) TAB PO SCH (09:00)
--- NOTE | 2019-10-14 10:01 | Physical Therapy Daily Note ---
PT Daily Note-Current Subjective Patient is up independently in room without difficulty. Mental Status Patient Orientation: Normal For Age Transfers SCALE: Activities may be completed with or without assistive devices. 6-Isjsdwizhb-ajjbkiv completes the activity by him/herself with no assistance from a helper. 5-Set-up or Clean-up Assistance-helper sets up or cleans up; patient completes activity. [place] assists only prior to or following the activity. 4-Supervision or Touching Assistance-helper provides verbal cues and/or touc michel/steadying and/or contact guard assistance as patient completes activity. Assistance may be provided throughout the activity or intermittently. 3-Partial/Moderate Assistance-helper does LESS THAN HALF the effort. [place] lifts, holds or supports trunk or limbs, but provides less than half the effort. 2-Substantial/Maximal Assistance-helper does MORE THAN HALF the effort. [place] lifts or holds trunk or limbs and provides more than half the effort. 0-Fxuutjxrg-rjhdwp does ALL the effort. Patient does none of the effort to complete the activity. Or, the assistance of 2 or more helpers is required for the patient to complete the activity. If activity was not attempted, code reason: 7-Patient Refused. 9-Not Applicable-not attempted and the patient did not perform the activity before the current illness, exacerbation or injury. 10-Not Attempted due to Environmental Limitations-(lack of equipment, weather restraints, etc.). 88-Not Attempted due to Medical Conditions or Safety Concerns. Roll Left & Right (QC): 6 Lying to Sitting/Side of Bed(Q: 6 Sit to Stand (QC): 6 Weight Bearing Right Lower Extremity: Right Weight Bearing/Tolerated Left Lower Extremity: Left Weight Bearing/Tolerated Gait Training Does the Patient Walk?: Yes Distance: >1000' Walk 10 feet (QC): 6 Walk 50 ft with 2 Turns(QC): 6 Walk 150 ft (QC): 6 Gait Assistive Device: FWW safe and functional with no deviation Assessment Patient is currently at OF with all gross motor skills. Patient instructed to ambulate PRN in hallway with mask on. RN notified. PT to dismiss patient from services. PT Longterm Goals Redipper Goals PT Redipper Goals Time Frame: Oct 19, 2019 Roll Left & Right (QC): 6 Sit to Lying (QC): 6 Lying-Sitting on Side/Bed(QC): 6 Sit to Stand (QC): 6 Chair/Jmq-ba-Pxyob Xfer(QC): 6 Walk 10 feet (QC): 6 Walk 50ft with 2 Turns (QC): 6 Walk 150 ft (QC): 6 PT Plan Treatment/Plan Treatment Plan: Discontinue PT, goals met Treatment Plan: Education, Functional Activity Jacob, Functional Strength, Gait, Safety, Therapeutic Exercise, Transfers Treatment Duration: Oct 19, 2019 Frequency: 11 times per week Estimated Hrs Per Day: .25 hour per day Patient and/or Family Agrees t: Yes Time/GCodes Time In: 855 Time Out: 919 Total Billed Treatment Time: 24 Total Billed Treatment 1 visit FA x 2 24 min BRADFORD ADAMS PT Oct 14, 2019 10:01
[2019-10-14] MEDS ORDERED: FLEET ENEMA ADULT 1 EA BTL PR ONE (11:30)
--- NOTE | 2019-10-14 11:38 | Occupational Ther Daily Note ---
OT Current Status-Daily Note Subjective Pt seen in recliner chair, eating breakfast. Pt denies ADLs on this morning, pt denies pain (then later states active chronic pain in mid-low back). Pt agreeable to therapy session. D/c OT on this date based on pt fx. Mental Status/Objective Patient Orientation: Person, Place, Situation, Normal For Age ADL-Treatment Therapy Code Descriptions/Definitions Functional [place] Measure: 0=Not Assessed/NA 4=Minimal Assistance 1=Total Assistance 5=Supervision or Setup 2=Maximal Assistance 6=Modified [place] 3=Moderate Assistance 7=Complete IndependenceSCALE: Activities may be completed with or without assistive devices. 0-Gilqshqgxv-mvmhxjl completes the activity by him/herself with no assistance from a helper. 5-Set-up or Clean-up Assistance-helper sets up or cleans up; patient completes activity. [place] assists only prior to or following the activity. 4-Supervision or Touching Assistance-helper provides verbal cues and/or touching/steadying and/or contact guard assistance as patient completes activity. Assistance may be provided throughout the activity or intermittently. 3-Partial/Moderate Assistance-helper does LESS THAN HALF the effort. [place] lifts, holds or supports trunk or limbs, but provides less than half the effort. 2-Substantial/Maximal Assistance-helper does MORE THAN HALF the effort. [place] lifts or holds trunk or limbs and provides more than half the effort. 1-Dnythcazh-tbscdr does ALL the effort. Patient does none of the effort to complete the activity. Or, the assistance of 2 or more helpers is required for the patient to complete the activity. If activity was not attempted, code reason: 7-Patient Refused. 9-Not Applicable-not attempted and the patient did not perform the activity before the current illness, exacerbation or injury. 10-Not Attempted due to Environmental Limitations-(lack of equipment, weather restraints, etc.). 88-Not Attempted due to Medical Conditions or Safety Concerns. Eating (QC): 6 Oral Hygiene (QC): 6 (IND per pt) Shower/Bathe Self (QC): 7 (states may desire later this date.) Upper Body Dressing (QC): 6 (IND per pt) Lower Body Dressing (QC): 6 (IND per pt) On/Off Footwear: 6 (IND per pt. states shoes "slip on/ off" and was able to don doff socks per pt report.) Toileting Hygiene (QC): 6 (IND per pt) Toilet Transfer (QC): 6 (IND per pt) Other Treatment Pt seen in recliner. Pt states he is able to complete stated ADLs (as above). pt denies showering at this time as he would like to wait until later this afternoon. Pt provides medical hx, states he has been doing very well with ambulation with 2WW though does not have one at home. Pt denies abdominal pain, though states he does not want to go home prior to knowing there is no blood in stool. Pt given theraband, pt completes multiple reps of UE exercises with minimal cues for positioning. Pt states he "was an exercise fanatic," and states he is knowledgeable on UE exercises. Pt agrees he is IND with ADLs, agreeable to OT d/c. All needs met, call light in reach. Education OT Patient Education: Exercise program, Home exercise program Teaching Recipient: Patient Teaching Methods: Demonstration, Discussion Response to Teaching: Verbalize Understanding, Return Demonstration OT Jail Goals Insurance Territory Manager Goals Time Frame: Oct 19, 2019 Eating (QC): 6 Oral Hygiene (QC): 6 Toileting Hygiene (QC): 6 Shower/Bathe Self (QC): 6 Upper Body Dressing (QC): 6 Lower Body Dressing (QC): 6 On/Off Footwear (QC): 6 Additional Goals: 2-Verbalize Understanding, 3-ImproveStrength/Jacob 1=Demonstrate adherence to instructed precautions during ADL tasks. 2=Patient will verbalize/demonstrate understanding of assistive devices/modifications for ADL. 3=Patient will improve strength/tolerance for activity to enable patient to perform ADL's. OT Education/Plan Problem List/Assessment Assessment: No Skilled OT Needs ID'd Pt to benefit from skilled OT intervention for ADL training, transfers, strengthening, and safety education to increase level of independence and allow safe discharge. Discharge Recommendations Plan/Recommendations: Discharge/Goals Met Treatment Plan/Plan of Care Treatment,Training & Education: Yes Patient would benefit from OT for education, treatment and training to promote independence in ADL's, mobility, safety and/or upper extremity function for ADL's. Plan of Care: ADL Retraining, Functional Mobility, UE Funct Exercise/Act Treatment Duration: Oct 19, 2019 Frequency: 5 times per week Estimated Hrs Per Day: .25 hour per day Rehab Potential: Fair Time/GCodes Start Time: 11:02 Stop Time: 11:20 Total Time Billed (hr/min): 18 Billed Treatment Time 1, FA (18) D/c on this date as pt states PLOF within ADL tasks. TYSON GARCIA OTR Oct 14, 2019 11:38
--- NOTE | 2019-10-14 12:21 | Progress Note ---
Subjective Date Seen by a Provider: Oct 14, 2019 Time Seen by a Provider: 10:00 Subjective/Events-last exam doing better today. still feels weak but able to ambulate and sit upright. Hb stable. Objective Exam Vital Signs Date Time Temp Pulse Resp B/P (MAP) Pulse Ox O2 Delivery O2 Flow Rate FiO2 10/14/19 08:00 100 Room Air 10/14/19 08:00 36.6 73 18 107/70 (82) 100 Room Air 10/14/19 03:19 37.0 10/13/19 20:00 Room Air 10/13/19 17:17 36.2 67 16 111/72 10/13/19 16:18 37.1 77 16 113/64 (80) 99 Room Air 10/13/19 14:15 36.9 67 16 107/69 10/13/19 13:58 37.0 75 16 103/71 I & O 10/14/19 07:00 Intake Total 2130 ml Output Total 200 ml Balance 1930 ml Capillary Refill : Less Than 3 SecondsLess Than 3 Seconds General Appearance: No Apparent Distress HEENT: PERRL/EOMI Neck: Full Range of Motion Respiratory: Chest Non Tender, Lungs Clear Cardiovascular: Regular Rate, Rhythm Gastrointestinal: normal bowel sounds, non tender, soft Extremity: Normal Capillary Refill Neurologic/Psychiatric: Alert, Oriented x3 Skin: Normal Color Lymphatic: No Adenopathy Results Lab Laboratory Tests 10/14/19 04:50: White Blood Count 2.1L, Red Blood Count 3.30L, Hemoglobin 8.5L, Hematocrit 26L, Mean Corpuscular Volume 78L, Mean Corpuscular Hemoglobin 26, Mean Corpuscular Hemoglobin Concent 33, Red Cell Distribution Width 20.4H, Platelet Count 76L, Mean Platelet Volume 9.8, Sodium Level 132L, Potassium Level 3.8, Chloride Level 106, Carbon Dioxide Level 19L, Anion Gap 7, Blood Urea Nitrogen 42H, Creatinine 0.88, Estimat Glomerular Filtration Rate > 60, BUN/Creatinine Ratio 48, Glucose Level 95, Calcium Level 8.4L Microbiology 10/12/19 MRSA Screen - Final, Complete MRSA not isolated Assessment/Plan Assessment/Plan Assess & Plan/Chief Complaint 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 continue PPI. kurtis ultimate plan is to return to [facility] and f/u with his specialty physicians there. Clinical Quality Measures DVT/VTE Risk/Contraindication: Risk Factor Score Per Nursin RFS Level Per Nursing on Admit: 4+=Very High ZURI VALVERDE MD Oct 14, 2019 12:21
--- NOTE | 2019-10-14 13:43 | Discharge Inst-Simple/Standard ---
Discharge Inst-Standard Patient Instructions/Follow Up Plan of Care/Instructions/FU: Please continue to take your medications as written. Please follow up with your primary care team in [place] when you get back. Activity as Tolerated: Yes Discharge Diet: Low Sodium Diet Return to The Hospital For: Chest pain, shortness of breath, dark or red stools, vomiting blood, abdominal pain, fever, if you feel you are getting worse. YOHANNES STILL MD Oct 14, 2019 13:43
--- NOTE | 2019-10-14 14:21 | Physician Query Clarification ---
PQ-Further Specificity Admission/Discharge Admission Date: Oct 13, 2019 at 10:25 Discharge Date: The medical record reflects the following clinical scenario: History/Risk Factors: Portal Hypertension/Portal vein thrombosis Esophageal varices with bleed per Dr. [place] Op report. Anemia Clinical Findings: Hgb on admission 8.3 falling to 6.5 on 10/11. Treatment:Vdvviexkocgr-Szph-srkofgp RBC x 3. Question: Can you further specify acuity and type of anemia per the clinical indicators above? Please document a response in the Progress Notes or Discharge Summary. 1. Acute blood loss anemia. 2. Chronic blood loss anemia. 3. Other, with explanation of the clinical findings. 4. Clinically undetermined, no explanation for the clinical findings. PHYSICIAN RESPONSE Can you specify per above: 1 Please remember a lack of response to the above will prompt a phone page by CDI/Coding staff. In responding to this query, please exercise your independent professional judgment. The purpose of this communication is to more accurately reflect the complexity of your patients condition. The fact that a question is asked does not imply that any particular answer is desired or expected. Thank you for your timely response to this clarification. Requestors name: Pia Goldberg [facility] Phone # ext [phone] or [phone] THIS PHYSICIAN QUERY FORM IS A PERMANENT PART OF THE MEDICAL RECORD PIA GOLDBERG Oct 14, 2019 14:20 YOHANNES STILL MD Oct 14, 2019 16:00
--- NOTE | 2019-10-14 14:26 | NUR ---
CM/SS: Visited with pt as plan for discharge Plan: Pt to discharge to his temporary living situation at the [facility] until he is able to travel and return home to [place], [place]. Summary: Pt reports living in a hotel currently as he was traveling and visiting friends and became ill and had blood in his stool. He sought medical care. Pt reports having had a chronic condition related this issue, along with his liver, and blood loss. Pt reports just trying to get back to [place], [place]. He plans to return when his health will allow and there are no longer issues related to COVID -19. Pt has adequate resources to meet his needs. 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 Pt reports having a friend in town and he is able to cook there and bring the food to his hotel room and can also store it in his refrigerator in the room, has to eat things different due to his medical issues. He has a cane and reports getting around pretty good and does not need any additional equipment. Pt reports just needing to feel better and last time he had a similar situation it took him approximately four weeks to feel better. Pt has no identified needs at this time.
--- NOTE | 2019-10-14 15:38 | Discharge Summary ---
Diagnosis/Chief Complaint Date of Admission Oct 13, 2019 at 10:25 Date of Discharge Discharge Date: Oct 14, 2019 Admission Diagnosis Upper GI Bleed Primary Care No,Local Physician Discharge Diagnosis (1) Upper GI bleed Status: Acute (2) Portal vein thrombosis Status: Acute (3) Dizziness Status: Acute Discharge Summary Procedures/Consulations Dr [place] Discharge Physical Exam Allergies: Coded Allergies: NSAIDS (Non-Steroidal Anti-Inflamma (Verified Adverse Reaction, Unknown, 08/29/19) bleeding Vitals & I&Os Vital Signs Date Time Temp Pulse Resp B/P (MAP) Pulse Ox O2 Delivery O2 Flow Rate FiO2 10/14/19 08:00 100 Room Air 10/14/19 08:00 36.6 73 18 107/70 (82) 10/12/19 12:10 5 General Appearance: No Apparent Distress, Chronically ill Respiratory: Lungs Clear, No Respiratory Distress Cardiovascular: Regular Rate, Rhythm, No Murmur Neurologic/Psychiatric: Alert, Oriented x3 Hospital Course Pt was admitted to the hospital for upper GI bleed. 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 EGD was done and found no active bleed but did see his known esophageal varices. He was transfused 3 units pRBCs during this admission and his hemoglobin stabilized. He was up and ambulating with physical therapy over 700 feet. He was independently ambulatory and was comfortable with plan to discharge home today. He is travelling here from [place], [place] and staying in a hotel currently due to travel r estrictions with coronavirus. Planning Director was consulted to assist with discharge planning. Labs (last 24 hrs) Laboratory Tests 10/14/19 04:50: White Blood Count 2.1L, Red Blood Count 3.30L, Hemoglobin 8.5L, Hematocrit 26L, Mean Corpuscular Volume 78L, Mean Corpuscular Hemoglobin 26, Mean Corpuscular Hemoglobin Concent 33, Red Cell Distribution Width 20.4H, Platelet Count 76L, Mean Platelet Volume 9.8, Sodium Level 132L, Potassium Level 3.8, Chloride Level 106, Carbon Dioxide Level 19L, Anion Gap 7, Blood Urea Nitrogen 42H, Creatinine 0.88, Estimat Glomerular Filtration Rate > 60, BUN/Creatinine Ratio 48, Glucose Level 95, Calcium Level 8.4L 10/14/19 13:42: Lab Scanned Report Transfusion Reaction Form Microbiology 10/12/19 MRSA Screen - Final, Complete MRSA not isolated Patient resulted labs reviewed. Pending Labs Laboratory Tests 10/14/19 13:42: Lab Scanned Report Transfusion Reaction Form Discussion & Recommendations Discharge Planning: <30 minutes discharge planning Discharge Home Medications: Active Scripts Active Reported Tylenol Extra Strength (Acetaminophen) 500 Mg Tablet 1,000 Mg PO TID Probiotic (L.acidoph & Paracasei,B.lactis) 1 Each Capsule 1 Each PO DAILY Nexium 24Hr (Esomeprazole Magnesium) 20 Mg Capsule.dr 20 Mg PO 2100 Gas-X (Simethicone) 125 Mg Capsule 125 Mg PO QIDACHS Instructions to patient/family Please see electronic discharge instructions given to patient. Clinical Quality Measures DVT/VTE Risk/Contraindication: Risk Factor Score Per Nursin RFS Level Per Nursing on Admit: 4+=Very High YOHANNES STILL MD Oct 14, 2019 15:38
[2019-10-14 16:00] VITALS: BP 107/70
[2019-10-15] MEDS ORDERED: FAMO-119 PO (12:47)
[2019-10-15] MEDS ORDERED: SUCR1TAB36 PO (12:47)
== END 2019-10-14 16:00 | disposition home or self-care (01) | DRG 441 ==
LOC: EDUNIT# 09:39 → ER 09:40 → 4TH 11:20 → OBSVTOIN 10-13 10:25
PROVIDERS: ADMIT Family Medicine; ATTEND Family Medicine
PROC: 0DB78ZX Excision of Stomach, Pylorus, Via Natural or Artificial Opening Endoscopic, Diagnostic (ICD-10-PCS; principal; 2019-10-12 11:46)
DX: K76.6 Portal hypertension (principal); I85.11 Secondary esophageal varices with bleeding; I81 Portal vein thrombosis; R18.8 Other ascites; I82.890 Acute embolism and thrombosis of other specified veins; R64 Cachexia; D62 Acute posthemorrhagic anemia; K29.70 Gastritis, unspecified, without bleeding; K44.9 Diaphragmatic hernia without obstruction or gangrene; E86.9 Volume depletion, unspecified; E77.8 Other disorders of glycoprotein metabolism; Z87.442 Personal history of urinary calculi; Z87.19 Personal history of other diseases of the digestive system; Z87.11 Personal history of peptic ulcer disease; F41.9 Anxiety disorder, unspecified; F32.9 Major depressive disorder, single episode, unspecified
CPT/HCPCS: 36415; 36430; 80048; 80053; 81000; 82274; 83735; 85007; 85014; 85018; 85025; 85027; 85610; 85730; 86141; 86850; 86900; 86901; 86920; 87081; 88305; 93005; G0378

== ENCOUNTER 2019-10-15 09:17 | Emergency (ER) | payer MEDICARE ==
[~2019-10-15] VITALS: Ht 182 cm; Wt 62.4 kg
[~2019-10-15 09:17] MED LIST changes: +ACET-2267 PO; +ESOM20CA58 PO; +HYDR-83; +L.AC1CAP6 PO
--- OUTSIDE RECORDS SUMMARY | 2019-10-15 09:21 | XMS REPORT | Continuity of Care Document ---
Author Organization Unknown Address Unknown Phone Unavailable Allergies Active Description Code Type Severity Reaction Onset Reported/Identified Relationship to Patient Clinical Status Yes NSAIDS (Non-Steroidal Anti-Inflamma [id number] Drug Allergy Unknown N/A 08/29/2019 Medications There is no data. Problems Date Dx Coded Attending Type Code Diagnosis Diagnosed By 08/29/2019 EDMNOD VANG MD Ot R18. 8 OTHER ASCITES 08/30/2019 EDMOND VANG MD Ot R18. 8 OTHER ASCITES 09/06/2019 EDMOND VANG MD Ot R18. 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 09/19/2019 ZURI VALVERDE MD Ot K76.6 PORTAL HYPERTENSION 09/19/2019 ZURI VALVERDE MD Ot R18.8 OTHER ASCITES 09/19/2019 ZURI VALVERDE MD Ot Z90.49 ACQUIRED ABSENCE OF OTHER SPECIFIED PART 09/19/2019 ZURI VALVERDE MD Ot Z98.89 0 OTHER SPECIFIED POSTPROCEDURAL STATES 09/20/2019 NICHOLAS, BIB NAJERA Ot K72.90 HEPATIC FAILURE, UNSPECIFIED WITHOUT COM 09/20/2019 NICHOLAS, BIB SOAP PRESS FEEDER Ot R18.8 OTHER ASCITES 09/20/2019 NICHOLAS, BIB NAJERA Ot Z86.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 Results Test Result Range Complete blood count (CBC) with automate d white blood cell (WBC) differential - 10/11/19 09:55 Blood leukocytes automated count (number/volume) 7.0 10*3/uL 4.3-11.0 Blood erythrocytes automated count (number/volume) 3.52 10*6/uL 4.35-5.85 Venous blood hemoglobin measurement (mass/volume) 8.3 g/dL 13.3-17.7 Blood hematocrit (volume fraction) 27 % 40-54 Automated erythrocyte mean corpuscular volume 76 [ foz_us] 80-99 Automated erythrocyte mean corpuscular h emoglobin (mass per erythrocyte) 24 pg 25-34 Automated erythrocyte mean corpuscular h emoglobin concentration measurement (mass/volume) 31 g/dL 32-36 Automated erythrocyte distribution width ratio 21. 0 % 10.0- 14.5 Automated blood platelet count (count/volume) 206 10*3/uL 130-400 Automated blood platelet mean volume measurement 9.7 [foz_us] 7.4-10.4 Automated blood neutrophils/100 leukocytes 90 % 42-75 Automated blood lymphocytes/100 leukocytes 5 % 12-44 Blood monocytes/100 leukocytes 5 % 0-12 Automated blood eosinophils/100 leukocytes 0 % 0-10 Automated blood basophils/100 leukocytes 0 % 0-10 Blood neutrophils automated count (number/volume) 6.3 10*3 1.8-7.8 Blood lymphocytes automated count (number/volume) 0.3 10*3 1.0-4.0 Blood monocytes automated count (number/volume) 0. 4 10*3 0.0-1.0 Automated eosinophil count 0.0 10*3/uL 0 .0-0.3 Automated blood basophil count (count/volume) 0.0 10*3/uL 0.0-0.1 Comprehensive metabolic panel - 10/11/19 09:55 Serum or plasma sodium measurement (moles/volume) 131 mmol/L 135-145 Serum or plasma potassium measurement (moles/volume) 5.5 mmol/L 3.6-5.0 Serum or plasma chloride measurement (moles/volume) 103 mmol/L 98-107 Carbon dioxide 17 mmol/L 21-32 Serum or plasma anion gap determination (moles/volume) 11 mmol/L 5-14 Serum or plasma urea nitrogen measurement (mass/volume ) 59 mg/dL 7-18 Serum or plasma creatinine measurement (mass/volume) 1.09 mg/dL 0.60-1.30 Serum or plasma urea nitrogen/creatinine mass ratio 54 NRG Serum or plasma creatinine measurement w ith calculation of estimated glomerular filtration rate > NRG Serum or plasma glucose measurement (mass/volume) 166 mg/dL 70-105 Serum or plasma calcium measurement (mass/volume) 9.0 mg/dL 8.5-10.1 Serum or plasma total bilirubin measurement (mass/volu me) 0.5 mg/dL 0.1-1.0 Serum or plasma alkaline phosphatase placido surement (enzymatic activity/volume) 66 U/L 40-136 Serum or plasma aspartate aminotransfera se measurement (enzymatic activity/volume) 19 U/L 5-34 Serum or plasma alanine aminotransferase measurement (enzymatic activity/volume) 22 U/L 0-55 Serum or plasma protein measurement (mass/volume) 7.5 g/dL 6.4-8.2 Serum or plasma albumin measurement (mass/volume) 3.3 g/dL 3.2-4.5 CALCIUM CORRECTED 9.6 mg/dL 8.5-10.1 Magnesium - 10/11/19 09:55 Magnesium 2.0 mg/dL 1.6-2.4 PT panel in platelet poor plasma by coag ulation assay - 10/11/19 09:55 Prothrombin time (PT) in platelet poor plasma by coagu lation assay 14.8 s 12.2-14.7 INR in platelet poor plasma or blood by coagulation as say 1.1 0.8-1.4 Activated partial thromboplastin time (a PTT) in platelet poor plasma bycoagulation assay - 10/11/19 09:55 Activated partial thromboplastin time (a PTT) in platelet poor plasma bycoagulation assay 30 s 24-35 Serum or plasma C reactive protein measu rement (mass/volume) - 10/11/19 09:55 Serum or plasma C reactive protein measurement (mass/v olume) 1.18 mg/dL 0.00-0.50 Manual absolute plasma cell count - 09/21 07/11 09:55 Blood monocytes/100 leukocytes 3 % NRG Manual blood segmented neutrophils/100 leukocytes 89 % NRG Blood band neutrophils/100 leukocytes 1 % NRG Manual blood lymphocytes/100 leukocytes 7 % NRG Manual eosinophils/100 leukocytes in nose 0 % NRG Manual blood basophils/100 leukocytes 0 % NRG Blood anisocytosis detection by light microscopy S LIGHT NRG Blood ovalocytes detection by light microscopy SLI GHT NRG Blood microcytes detection by light microscopy SLI GHT NRG RED CELLS LEUKO REDUCED AS1 - 10/11/19 0 9:55 RED CELLS LEUKO REDUCED AS1 T RANSFUSED 10/13/19 1351 NRG Blood type T Indirect antibody screen [facility] - 10/11/19 09:55 WRISTBAND NUMBER [id number] NRG ABO+Rh group AP NRG Blood group antibody screen NEGATIVE NR G Complete urinalysis with reflex to cultu re - 10/11/19 10:57 Urine color determination YELLOW NRG Urine clarity determination CLEAR NR G Urine pH measurement by test strip 6.0 5-9 Specific gravity of urine by test strip 1.020 1.016-1.022 Urine protein assay by test strip, semi-quantitative NEGATIVE NEGATIVE Urine glucose detection by automated test strip NE GATIVE NEGATIVE Erythrocytes detection in urine sediment by light micr oscopy NEGATIVE NEGATIVE Urine ketones detection by automated test strip NE GATIVE NEGATIVE Urine nitrite detection by test strip NEGATIVE NEGATIVE Urine total bilirubin detection by test strip NEGA TIVE NEGATIVE Urine urobilinogen measurement by automated test strip (mass/volume) 0.2 mg/dL < = 1.0 Urine leukocyte esterase detection by dipstick NEG ATIVE NEGATIVE Automated urine sediment erythrocyte cou nt by microscopy (number/high power field) NONE NRG Automated urine sediment leukocyte count by microscopy (number/high power field) RARE NRG Bacteria detection in urine sediment by light microsco py TRACE NRG Crystals detection in urine sediment by light microsco py NONE NRG Casts detection in urine sediment by light microscopy NONE NRG Mucus detection in urine sediment by light microscopy SMALL NRG Complete urinalysis with reflex to culture NO NRG Whole blood hemoglobin and hematocrit [facility] - 10/11/19 18:59 Venous blood hemoglobin measurement (mass/volume) 7.6 g/dL 13.3-17.7 Blood hematocrit (volume fraction) 24 % 40-54 Complete blood count (CBC) with automate d white blood cell (WBC) differential - 10/12/19 05:00 Blood leukocytes automated count (number/volume) 4.0 10*3/uL 4.3-11.0 Blood erythrocytes automated count (number/volume) 2.77 10*6/uL 4.35-5.85 Venous blood hemoglobin measurement (mass/volume) 6.5 g/dL 13.3-17.7 Blood hematocrit (volume fraction) 21 % 40-54 Automated erythrocyte mean corpuscular volume 77 [ foz_us] 80-99 Automated erythrocyte mean corpuscular h emoglobin (mass per erythrocyte) 23 pg 25-34 Automated erythrocyte mean corpuscular h emoglobin concentration measurement (mass/volume) 31 g/dL 32-36 Automated erythrocyte distribution width ratio 20. 6 % 10.0- 14.5 Automated blood platelet count (count/volume) 95 1 0*3/uL 130-400 Automated blood platelet mean volume measurement 9.2 [foz_us] 7.4-10.4 Automated blood neutrophils/100 leukocytes 78 % 42-75 Automated blood lymphocytes/100 leukocytes 10 % 12-44 Blood monocytes/100 leukocytes 12 % 0-12 Automated blood eosinophils/100 leukocytes 1 % 0-10 Automated blood basophils/100 leukocytes 0 % 0-10 Blood neutrophils automated count (number/volume) 3.1 10*3 1.8-7.8 Blood lymphocytes automated count (number/volume) 0.4 10*3 1.0-4.0 Blood monocytes automated count (number/volume) 0. 5 10*3 0.0-1.0 Automated eosinophil count 0.0 10*3/uL 0 .0-0.3 Automated blood basophil count (count/volume) 0.0 10*3/uL 0.0-0.1 Comprehensive metabolic panel - 10/12/19 05:00 Serum or plasma sodium measurement (moles/volume) 132 mmol/L 135-145 Serum or plasma potassium measurement (moles/volume) 4.3 mmol/L 3.6-5.0 Serum or plasma chloride measurement (moles/volume) 102 mmol/L 98-107 Carbon dioxide 18 mmol/L 21-32 Serum or plasma anion gap determination (moles/volume) 12 mmol/L 5-14 Serum or plasma urea nitrogen measurement (mass/volume ) 54 mg/dL 7-18 Serum or plasma creatinine measurement (mass/volume) 1.10 mg/dL 0.60-1.30 Serum or plasma urea nitrogen/creatinine mass ratio 49 NRG Serum or plasma creatinine measurement w ith calculation of estimated glomerular filtration rate > NRG Serum or plasma glucose measurement (mass/volume) 106 mg/dL 70-105 Serum or plasma calcium measurement (mass/volume) 9.0 mg/dL 8.5-10.1 Serum or plasma total bilirubin measurement (mass/volu me) 0.5 mg/dL 0.1-1.0 Serum or plasma alkaline phosphatase placido surement (enzymatic activity/volume) 58 U/L 40-136 Serum or plasma aspartate aminotransfera se measurement (enzymatic activity/volume) 20 U/L 5-34 Serum or plasma alanine aminotransferase measurement (enzymatic activity/volume) 22 U/L 0-55 Serum or plasma protein measurement (mass/volume) 6.9 g/dL 6.4-8.2 Serum or plasma albumin measurement (mass/volume) 3.4 g/dL 3.2-4.5 CALCIUM CORRECTED 9.5 mg/dL 8.5-10.1 Methicillin resistant Staphylococcus aur eus (MRSA) screening culture - 10/12/19 10:00 Methicillin resistant Staphylococcus aureus (MRSA) scr eening culture NEG NRG Whole blood hemoglobin and hematocrit pa nabeel - 10/13/19 06:45 Venous blood hemoglobin measurement (mass/volume) 7.7 g/dL 13.3-17.7 Blood hematocrit (volume fraction) 24 % 40-54 Automated blood complete blood count (he mogram) panel - 10/14/19 04:50 Blood leukocytes automated count (number/volume) 2.1 10*3/uL 4.3-11.0 Blood erythrocytes automated count (number/volume) 3.30 10*6/uL 4.35-5.85 Venous blood hemoglobin measurement (mass/volume) 8.5 g/dL 13.3-17.7 Blood hematocrit (volume fraction) 26 % 40-54 Automated erythrocyte mean corpuscular volume 78 [ foz_us] 80-99 Automated erythrocyte mean corpuscular h emoglobin (mass per erythrocyte) 26 pg 25-34 Automated erythrocyte mean corpuscular h emoglobin concentration measurement (mass/volume) 33 g/dL 32-36 Automated erythrocyte distribution width ratio 20. 4 % 10.0- 14.5 Automated blood platelet count (count/volume) 76 1 0*3/uL 130-400 Automated blood platelet mean volume measurement 9.8 [foz_us] 7.4-10.4 Whole blood basic metabolic panel - 09/21 10/09 04:50 Serum or plasma sodium measurement (moles/volume) 132 mmol/L 135-145 Serum or plasma potassium measurement (moles/volume) 3.8 mmol/L 3.6-5.0 Serum or plasma chloride measurement (moles/volume) 106 mmol/L 98-107 Carbon dioxide 19 mmol/L 21-32 Serum or plasma anion gap determination (moles/volume) 7 mmol/L 5-14 Serum or plasma urea nitrogen measurement (mass/volume ) 42 mg/dL 7-18 Serum or plasma creatinine measurement (mass/volume) 0.88 mg/dL 0.60-1.30 Serum or plasma urea nitrogen/creatinine mass ratio 48 NRG Serum or plasma creatinine measurement w ith calculation of estimated glomerular filtration rate > NRG Serum or plasma glucose measurement (mass/volume) 95 mg/dL 70-105 Serum or plasma calcium measurement (mass/volume) 8.4 mg/dL 8.5-10.1 Encounters ACCT No. Visit Date/Time Discharge Status Pt. Type Provider Facility Loc./Unit Complaint [id number] 10/13/2019 10:25:00 16:00:00 DIS Inpatient TESSY SANCHEZ, YOHANNES Larry [facility] 4TH GI BLEED [id number] 10/06/2019 09:43:00 12:05:00 DIS Outpatient ZURI VALVERDE MD [facility] RAD ASCITIES [id number] 09/19/2019 12:16:00 17:25:00 DIS Outpatient ZURI VALVERDE MD [facility] ER PARACENTESIS [id number] 09/19/2019 09:27:00 12:25:00 DIS Emergency BIB PETERSON [facility] ER FLUID ON STOMACH [id number] 08/30/2019 09:11:00 13:44:00 DIS Outpatient EDMOND VANG MD [facility] RAD ASCITES FOR PARACENTESI S [id number] 08/29/2019 09:03:00 020 09:44:00 DIS Emergency CIERA SANCHEZ, EDMOND Edwards [facility] ER FLUID BUILD UP IN ABD
[2019-10-15 10:00] LABS: BASOPHILS % (AUTO) 0 % (0-10); EOSINOPHILS % (AUTO) 0 % (0-10); HEMATOCRIT 28 % (40-54); HEMOGLOBIN 8.8 G/DL (13.3-17.7); LYMPHOCYTES # (AUTO) 0.7 X 10^3 (1.0-4.0); LYMPHOCYTES % (AUTO) 8 % (12-44); MEAN CORPUSCULAR HEMOGLOBIN 25 PG (25-34); MEAN CORPUSCULAR HGB CONC 32 G/DL (32-36); MEAN CORPUSCULAR VOLUME 80 FL (80-99); MEAN PLATELET VOLUME 9.7 FL (7.4-10.4); MONOCYTES # (AUTO) 0.6 X 10^3 (0.0-1.0); MONOCYTES % (AUTO) 6 % (0-12); NEUTROPHILS # (AUTO) 7.4 X 10^3 (1.8-7.8); NEUTROPHILS % (AUTO) 86 % (42-75); PLATELET COUNT 170 10^3/uL (130-400); RED CELL DISTRIBUTION WIDTH 21.3 % (10.0-14.5); WHITE BLOOD COUNT 8.7 10^3/uL (4.3-11.0)
[2019-10-15 10:12] LABS: ALBUMIN 3.4 GM/DL (3.2-4.5); CHLORIDE 104 MMOL/L (98-107); POTASSIUM 4.4 MMOL/L (3.6-5.0); SODIUM 134 MMOL/L (135-145)
[2019-10-15 10:14] LABS: CALCIUM 8.9 MG/DL (8.5-10.1)
[2019-10-15 10:15] LABS: GLUCOSE 141 MG/DL (70-105); TOTAL PROTEIN 7.1 GM/DL (6.4-8.2)
[2019-10-15 10:16] LABS: CARBON DIOXIDE 17 MMOL/L (21-32); INR 1.1 (0.8-1.4); PROTHROMBIN TIME PATIENT 14.3 SEC (12.2-14.7)
[2019-10-15 10:18] LABS: ALKALINE PHOSPHATASE 62 U/L (40-136); CREATININE SERUM 1.01 MG/DL (0.60-1.30); GFR ESTIMATED > 60
[2019-10-15 10:19] LABS: BUN/CREATININE RATIO 48
[2019-10-15 10:21] LABS: ALANINE AMINOTRANSFERASE 22 U/L (0-55)
[2019-10-15 10:45] LABS: BILIRUBIN,URINE NEGATIVE (NEGATIVE); CLARITY,URINE CLEAR; COLOR,URINE YELLOW; GLUCOSE, URINE (UA) NEGATIVE (NEGATIVE); KETONES,URINE NEGATIVE (NEGATIVE); LEUKOCYTE ESTERASE ,URINE NEGATIVE (NEGATIVE); NITRITE,URINE NEGATIVE (NEGATIVE); PROTEIN,URINE NEGATIVE (NEGATIVE)
[2019-10-15 10:48] LABS: ANISOCYTOSIS MODERATE; BAND NEUTROPHILS 0 %; BASOPHILS % (MANUAL) 0 %; ELLIPT/OVALOCYTES SLIGHT; EOSINOPHILS % (MANUAL) 0 %; LYMPHOCYTES % (MANUAL) 7 %; MONOCYTES % (MANUAL) 10 %; NEUTROPHILS % (MANUAL) 83 %; POLYCHROMASIA SLIGHT
[2019-10-15 10:53] LABS: BACTERIA,URINE TRACE /HPF; RBC,URINE RARE /HPF; WBC,URINE RARE /HPF
[2019-10-15] MEDS ORDERED: FAMOTIDINE 20MG/2ML IV (PEPCID) IVP ONE (11:15)
--- NOTE | 2019-10-15 11:55 | NUR ---
1155 CBC DRAWN ORDERED
[2019-10-15 12:13] LABS: HEMOGLOBIN 8.2 G/DL (13.3-17.7)
[2019-10-15] MEDS ORDERED: SUCR1TAB36 PO (12:47)
[2019-10-15] MEDS ORDERED: FAMO-119 PO (12:47)
--- NOTE | 2019-10-15 12:47 | ED GI ---
General Chief Complaint: Abdominal/GI Problems Stated Complaint: BLOOD IN STOOL Nursing Triage Note: PT CO OF GI BLEED, PT WAS RELEASED FROM HOSPITAL YESTERDAY W DX GI BLEED. PT HAS SIGNIFICANT HX OF LIVER AND ABD PROBLEMS, PT CO OF WEAKNESS Sepsis Screen: No Definite Risk Source of Information: Patient, Old Records Exam Limitations: No Limitations History of Present Illness Date Seen by Provider: Oct 15, 2019 Time Seen by Provider: 09:26 Initial Comments This 69-year-old gentleman presents to the emergency room with complaints of melenic soft stools and weakness. He was admitted to the hospital and discharged yesterday after being transfused to treat blood loss from an acute GI bleed. Patient has a very complicated past medical history. 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 He had been living with family in [place], [place] recently moved here because he desired to living [place]. He has other family living in the area. He has not established with subspecialists in the [facility] yet. Dr. Valverde has recommended that he be established with subspecialists at [facility]. Patient is not actively bleeding now. Vital signs are stable. He frequently develops ascites and has required multiple rounds of paracentesis. Allergies and Home Medications Allergies Coded Allergies: NSAIDS (Non-Steroidal Anti-Inflamma (Verified Adverse Reaction, Unknown, 08/29/19) bleeding Home Medications Acetaminophen 500 Mg Tablet, 1,000 MG PO TID, (Reported) Esomeprazole Magnesium 20 Mg Capsule.dr, 20 MG PO 2100, (Reported) Famotidine 20 Mg Tablet, 20 MG PO BID Prescribed by: CAMILA BHATTI on 10/15/19 1247 LAprilacidoph & ParacaseiB.lactis 1 Each Capsule, 1 EACH PO DAILY, (Reported) Simethicone 125 Mg Capsule, 125 MG PO QIDACHS, (Reported) Sucralfate 1 Gm Tablet, 1 GM PO QID Crash/dissolve in 5-10 ML water to make a slurry. Take 30 minutes before eating/drinking at meals and at bedtime. Prescribed by: CAMILA BHATTI on 10/15/19 1247 Patient Home Medication List Home Medication List Reviewed: Yes Review of Systems Review of Systems Constitutional: see HPI, weakness EENTM: No Symptoms Reported Respiratory: No Symptoms Reported Cardiovascular: No Symptoms Reported Gastrointestinal: See HPI, Blood Streaked Stools (and soft melenic stools) Genitourinary: No Symptoms Reported Musculoskeletal: no symptoms reported Skin: no symptoms reported Psychiatric/Neurological: No Symptoms Reported Endocrine: No Symptoms Reported Hematologic/Lymphatic: No Symptoms Reported Past Ultcekh-Bogxju-Wkpduq Hx Patient Social History Alcohol Use: Denies Use Recreational Drug Use: No Smoking Status: Never a Smoker 2nd Hand Smoke Exposure: No Recent Foreign Travel: No Contact w/Someone Who Travel: No Recent Infectious Disease Expo: No Recent Hopitalizations: Yes (GI BLEED) Seasonal Allergies Seasonal Allergies: Yes Past Medical History Surgeries: Yes (hernia) Abdominal, Gallbladder Respiratory: No Cardiac: Yes Hypotension Neurological: No Genitourinary: Yes Kidney Stones Gastrointestinal: Yes ("needs liver transplant" DVT of portal vein, ) Abdominal Hernia, Liver Disease/Jaundice Musculoskeletal: No Endocrine: No HEENT: No Cancer: No Psychosocial: No Integumentary: No Blood Disorders: No Family Medical History No Pertinent Family Hx Physical Exam Vital Signs Vital Signs - First Documented 10/15/19 10/15/19 09:30 13:03 Temp 36.4 Pulse 84 Resp 18 B/P (MAP) 105/75 (85) Pulse Ox 98 O2 Delivery Room Air Capillary Refill : Less Than 3 Seconds Height/Weight/BMI Height: '" Weight: lbs. oz. kg; 18.00 BMI Method: General Appearance: WD/WN, no apparent distress HEENT: normal ENT inspection Neck: normal inspection Respiratory: lungs clear, normal breath sounds, no respiratory distress, no accessory muscle use Cardiovascular: regular rate, rhythm, no edema, no murmur Gastrointestinal: normal bowel sounds, non tender, soft Extremities: normal inspection, no pedal edema Neurologic/Psychiatric: pre press operator II-XII nml as tested, no motor/sensory deficits, alert, normal mood/affect, oriented x 3 Skin: normal color, warm/dry Progress/Results/Core Measures Results/Orders Lab Results Laboratory Tests Test 10/15/19 09:40 10/15/19 09:53 10/15/19 12:00 Range/Units Urine Color YELLOW Urine Clarity CLEAR Urine pH 6.0 5-9 Urine Specific Dyer 1.020 1.016-1.022 Urine Protein NEGATIVE NEGATIVE Urine Glucose (UA) NEGATIVE NEGATIVE Urine Ketones NEGATIVE NEGATIVE Urine Nitrite NEGATIVE NEGATIVE Urine Bilirubin NEGATIVE NEGATIVE Urine Urobilinogen 0.2 < = 1.0 MG/DL Urine Leukocyte Esterase NEGATIVE NEGATIVE Urine RBC (Auto) NEGATIVE NEGATIVE Urine RBC RARE /HPF Urine WBC RARE /HPF Urine Crystals NONE /LPF Urine Bacteria TRACE /HPF Urine Casts NONE /LPF Urine Mucus SMALL H /LPF Urine Culture Indicated NO White Blood Count 8.7 4.3-11.0 10^3/uL Red Blood Count 3.46 L 4.35-5.85 10^6/uL Hemoglobin 8.8 L 8.2 L 13.3-17.7 G/DL Hematocrit 28 L 26 L 40-54 % Mean Corpuscular Volume 80 80-99 FL Mean Corpuscular Hemoglobin 25 25-34 PG Mean Corpuscular Hemoglobin Concent 32 32-36 G/DL Red Cell Distribution Width 21.3 H 10.0-14.5 % Platelet Count 170 130-400 10^3/uL Mean Platelet Volume 9.7 7.4-10.4 FL Neutrophils (%) (Auto) 86 H 42-75 % Lymphocytes (%) (Auto) 8 L 12-44 % Monocytes (%) (Auto) 6 0-12 % Eosinophils (%) (Auto) 0 0-10 % Basophils (%) (Auto) 0 0-10 % Neutrophils # (Auto) 7.4 1.8-7.8 X 10^3 Lymphocytes # (Auto) 0.7 L 1.0-4.0 X 10^3 Monocytes # (Auto) 0.6 0.0-1.0 X 10^3 Eosinophils # (Auto) 0.0 0.0-0.3 10^3/uL Basophils # (Auto) 0.0 0.0-0.1 10^3/uL Neutrophils % (Manual) 83 % Lymphocytes % (Manual) 7 % Monocytes % (Manual) 10 % Eosinophils % (Manual) 0 % Basophils % (Manual) 0 % Band Neutrophils 0 % Polychromasia SLIGHT Anisocytosis MODERATE Elliptocytes SLIGHT Prothrombin Time 14.3 12.2-14.7 SEC INR Comment 1.1 0.8-1.4 Activated Partial Thromboplast Time 30 24-35 SEC Sodium Level 134 L 135-145 MMOL/L Potassium Level 4.4 3.6-5.0 MMOL/L Chloride Level 104 98-107 MMOL/L Carbon Dioxide Level 17 L 21-32 MMOL/L Anion Gap 13 5-14 MMOL/L Blood Urea Nitrogen 48 H 7-18 MG/DL Creatinine 1.01 0.60-1.30 MG/DL Estimat Glomerular Filtration Rate > 60 BUN/Creatinine Ratio 48 Glucose Level 141 H 70-105 MG/DL Calcium Level 8.9 8.5-10.1 MG/DL Corrected Calcium 9.4 8.5-10.1 MG/DL Total Bilirubin 1.0 0.1-1.0 MG/DL Aspartate Amino Transf (AST/SGOT) 18 5-34 U/L Alanine Aminotransferase (ALT/SGPT) 22 0-55 U/L Alkaline Phosphatase 62 40-136 U/L Total Protein 7.1 6.4-8.2 GM/DL Albumin 3.4 3.2-4.5 GM/DL My Orders Orders - CAMILA SENA MD Cbc With Automated Diff (10/15/19 09:26) Comprehensive Metabolic Panel (10/15/19 09:26) Ed Iv/Invasive Line Start (10/15/19 09:26) Protime With Inr (10/15/19 09:27) Partial Thromboplastin Time (10/15/19 09:27) Fecal Occult Bedside (10/15/19 09:27) Manual Differential (10/15/19 09:53) Ua Culture If Indicated (10/15/19 10:29) Hemoglobin And Hematocrit (10/15/19 12:00) Famotidine Injection (Pepcid Injection) (10/15/19 11:15) Medications Given in ED Current Medications Medications Dose Ordered Sig/Jarred Route Start Time Stop Time Status Last Admin Dose Admin Famotidine 20 mg ONCE ONCE IVP 10/15/19 11:15 10/15/19 11:16 DC 10/15/19 11:17 20 MG Vital Signs/I&O 10/15/19 10/15/19 09:30 13:03 Temp 36.4 36.4 Pulse 84 79 Resp 18 18 B/P (MAP) 105/75 (85) 108/81 (85) Pulse Ox 98 98 O2 Delivery Room Air Blood Pressure Mean: 85 Progress Progress Note : Progress Note Patient was seen and examined. Hemoglobin was stable when compared with prior. He had no further active bleeding or melenic stools in the ER. Blood pressure was stable. I discussed the situation with Dr. Valverde who would like the patient to see subspecialists at [facility]. He intends to make the referral next week. In the meantime, I also discussed the case with the patient's daughter who is a physician's patient support assistant. She requested a repeat of the hemoglobin which was performed 2 hours later. Hemoglobin was still above 8 and patient had no further changes in vital signs or production of melenic stools. After discussion with Dr. Valverde, we added Pepcid and Carafate to his treatment regimen in addition to the Nexium he was already taking. Departure Impression Primary Impression: GI bleed Qualified Codes: K92.1 - Melena Additional Impression: Anemia Qualified Codes: D64.9 - Anemia, unspecified Disposition: HOME, SELF-CARE Condition: Improved Departure-Patient Inst. Decision time for Depature: 12:43 Referrals: NO,LOCAL PHYSICIAN (PCP/Family) Primary Care Physician Patient Instructions: Esophageal Varices Add. Discharge Instructions: Follow-up with Dr. Valverde as soon as possible. Please call his office early Thursday. In the meantime, continue taking Nexium as directed. Add Pepcid 20 mg twice daily and Carafate 4 times a day. Return to the emergency room if you have worsening symptoms. Work with Dr. Valverde on a referral to appropriate specialists. All discharge instructions reviewed with patient and/or family. Voiced understanding. Scripts Sucralfate (Carafate) 1 Gm Tablet 1 GM PO QID, #120 TAB Crash/dissolve in 5-10 ML water to make a slurry. Take 30 minutes before eating/drinking at meals and at bedtime. Prov: CAMILA SENA MD 10/15/19 Famotidine (Pepcid) 20 Mg Tablet 20 MG PO BID, #60 TAB Prov: CAMILA SENA MD 10/15/19 Copy Copies To 1: ZURI VALVERDE MD, JOSHUA T MD Oct 15, 2019 12:47
[2019-10-15 13:03] VITALS: BP 108/81
== END 2019-10-15 13:00 | disposition home or self-care (01) ==
LOC: EDUNIT# 09:17 → ER 09:18
DX: K92.2 Gastrointestinal hemorrhage, unspecified (principal); D64.9 Anemia, unspecified; Z88.6 Allergy status to analgesic agent
CPT/HCPCS: 36415; 80053; 81000; 85007; 85014; 85018; 85027; 85610; 85730

== ENCOUNTER → 2019-10-21 | Outpatient (CLI) | payer MEDICARE ==
[~2019-10-21] VITALS: Ht 177 cm; Wt 62.4 kg
[~2019-10-21] MED LIST changes: +FAMO-119 PO; +SUCR1TAB36 PO
[2019-10-21 13:50] VITALS: BP 99/56
--- NOTE | 2019-10-21 14:24 | Diagnostic Imaging Report ---
INDICATION: Ascites. Sonographic interrogation of all 4 quadrants of the abdomen were obtained. A moderate fluid in the right upper and lower quadrants is seen. There is also moderate fluid in the left upper and lower quadrants. Largest pocket in the right lower quadrant was marked. Paracentesis was performed by Dr. [place]. IMPRESSION: Moderate ascites. Dictated by: Dictated on workstation # [id number]
--- NOTE | 2019-10-21 19:59 | OPERATIVE REPORT ---
DATE OF SERVICE: 10/21/2019 PREOPERATIVE DIAGNOSIS: Recurrent symptomatic ascites. POSTPROCEDURE DIAGNOSIS: Recurrent symptomatic ascites. PROCEDURE: Paracentesis. SURGEON: Zuri Valverde MD. ANESTHESIA: Local. ESTIMATED BLOOD LOSS: Minimal. FINDINGS: 3 liters of yellow opaque fluid. DISPOSITION: The patient tolerated the procedure well. INDICATIONS: The patient is a 69-year-old male well known to us now. 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 He has had the normal associated problems with portal hypertension including esophageal varices and has undergone multiple previous esophageal variceal banding; however, this was all done by specialist in [place], [place]. He temporarily moved to this region to be close to the family, however, due to these ongoing problems would like to reestablish himself with his physicians back in [place] once he is healthy enough. Again, he presents with abdominal distention and a positive fluid shift wave and symptomatic ascites formation. DESCRIPTION OF PROCEDURE: The abdomen was prepped and draped in standard surgical fashion. Before this, the right lower abdomen was marked by ultrasonography. Skin, subcutaneous tissue, muscle layers as well as the peritoneal lining were then anesthetized using 1% lidocaine. A vertical skin incision was then made using a 15 blade. The catheter and trocar were then introduced withdrawing of straw yellow opaque fluid. The catheter was then connected to vacuum containers suction where 3 liters were evacuated. The catheter was then removed. Pressure applied to the skin and subcutaneous tissue and Dermabond placed onto the skin entry site. The patient tolerated the procedure well. We will continue to monitor his progress and he is instructed to return when he does have a reoccurrence of symptoms. Job ID: [id number] DocumentID: [id number] Dictated Date: 10/21/2019 13:42:43 Geographic Information Systems Director Date: 10/21/2019 19:58:56 Dictated By: ZURI VALVERDE MD
== END ==
LOC: RAD 12:49
PROVIDERS: ATTEND Surgery
DX: R18.8 Other ascites (principal); K76.6 Portal hypertension; I85.10 Secondary esophageal varices without bleeding; I81 Portal vein thrombosis
CPT/HCPCS: 49082; 49083